=== PATIENT | male | born 1975 | race Caucasian/White ===

== ENCOUNTER 2022-06-23 15:51 | Emergency (ER) | payer BC, SELFPAY ==
[2022-06-23] VITALS (11 sets, daily range): BP systolic 127–150; BP diastolic 86–118; PULSE 80–100; RESP 24; TEMP 36.9; O2SAT 93–100; BMI 38.7
--- NOTE | 2022-06-23 16:19 | ED_ITS ---
HPI - General Adult General Time Seen by Provider: 16:20 Date Seen: 06/23/22 Chief complaint: Abdominal Pain Stated complaint: Severe Abdominal Pain - Temp Time Seen by Provider: 06/23/22 16:19 Source: patient and RN notes reviewed Mode of arrival: ambulatory Limitations: no limitations History of Present Illness HPI narrative: Patient is a 46-year-old male accompanied by his to the ER with concern of abdominal pain. It started this morning. He started with right lower quadrant abdominal pain, generalize is into the suprapubic and left lower quadrant pain. He has not had a fever per se but started to feel like his temperature was elevating. It was in the 99 range just prior to coming in. He did just try some ibuprofen. His last oral intake for food was 2:00 a.m.. He has had diminished appetite but no nausea or vomiting. Maybe some dysuria but no hematuria, no frequency. He has had no prior abdominal surgeries, no history kidney stones. He has not had any diarrhea or change in bowel habits. No respiratory symptoms with this. Patient is a smoker, admits to daily alcohol use 2+ servings a day. Related Data Home Medications Medication Instructions Recorded Confirmed fluticasone 500 mcg-salmeterol 50 ea inhalation 05/31/22 05/31/22 mcg/dose blistr powdr for inhalation (Advair Diskus) Previous Rx's Medication Instructions Recorded amoxicillin 875 mg-potassium 1 tab PO BID #20 tabs 06/23/22 clavulanate 125 mg tablet Allergies Allergy/AdvReac Type Severity Reaction Status Date / Time No Known Drug Allergies Allergy Verified 06/23/22 17:03 Review of Systems Status of ROS: Reports: 10 or more systems reviewed and unremarkable except as noted in History and below [facility] Medical History (Updated 06/23/22 @ 18:00 by Jaylyn Cantrell MD) Cellulitis Social History Smoking Status: Current every day smoker (1/2 ppd) Exam Const: Vital Signs, click to edit/add: Vital Signs - 24 hr 06/23/22 16:01 Temperature 98.5 F Pulse Rate [Right Pulse Oximeter] 100 Respiratory Rate 24 Blood Pressure [Ri ght Upper Arm] 143/93 H Pulse Oximetry 98 Oxygen Delivery Me thod Room Air Documenting provider has reviewed patient's vital signs: yes Common normals: no apparent distress, oriented x3, no limitations, healthy appearing, alert and well nourished General appearance: cooperative, well kempt, well developed and ill appearing (Seems mildly uncomfortable, looks like he does not feel well) acutely Nutritional appearance: overweight HENMT: Common normals: normocephalic, head/scalp atraumatic, hearing grossly normal bilaterally, external ears normal, EAC's normal, external nose normal, nasal mucous membranes and turbinates normal, moist oral mucous membranes, oropharynx normal, dentition normal and gingiva normal Head and scalp: normocephalic and atraumatic Nose: external nose normal and nasal mucous membranes and turbinates normal External ear: external ears normal External auditory canal: EAC's normal Eye: Common normals: PERRL, EOMs intact bilaterally, conjunctivae normal and no scleral icterus Conjunctiva: conjunctiva(e) normal Pupil: PERRL Neck & C-Spine: Common normals: full ROM (Baseline has thick neck), no lymphadenopathy, supple, no meningeal signs, no JVD and thyroid normal Thyroid: thyroid normal Resp: Common normals: normal respiratory effort, no retractions, no use of accessory muscles and clear to auscultation bilaterally Auscultation: clear to auscultation bilaterally Cardio: Common normals: no JVD, regular rate, regular rhythm, S1 normal heart sound, S2 normal heart sound, no gallops, no clicks and no murmurs Rate: regular rate Rhythm: regular rhythm Heart sounds: S1 normal and S2 normal GI: Other: Has protuberant abdomen but patient does not feel it is distended over his baseline body habitus. Bowel sounds are present. He has right lower quadrant tenderness with some rebound, no guarding at this point. It does generalized to the suprapubic area and into the left lower quadrant. Upper abdomen is unaffected. Extremity: Common normals: normal to inspection, full ROM, normal capillary refill, no joint enlargement, no clubbing, cyanosis or edema, no calf tenderness and no pedal edema Neuro: Common normals: oriented x3, moves all extremities, no focal motor deficits and no sensory deficits noted Sensorium/orientation: alert Meningeal signs: no meningeal signs Speech: speech normal Psych: Appearance: well kempt Course Course Hospital Course: Patient will have an IV established, initiate a L of normal saline and 4 mg IV morphine. Will give at appropriate labs and CT imaging of his abdomen with IV contrast. Certainly intra-abdominal pathology including appendicitis are a concern here. I do not think that this is likely to be stone pathology but will hopefully see if this is the case on a CT. Will also collect urinalysis. He obviously has some intra-abdominal pathology in need to decipher whether or not he has a surgical need, any need for any IV antibiotics. Reevaluation(s) Reevaluation #1: Patient is informed that his CT showing uncomplicated sigmoid diverticulitis. Unfortunately he had evidence of significant hypoxia into the low 80s with sleeping and snoring. His has reportedly been trying to get him in for sleep study. Reviewed with him the risks of untreated sleep apnea, the cardiac and pulmonary side effects were specifically reviewed. Knowing that he had hypoxia down into the lower 80s with sleeping, have reviewed with him that I do not think it is in his best interest to go home with narcotics. There is the theoretical but ultimately true possibility of suppression of his respiratory drive due to the sleep apnea with narcotics on board. They seem to be comfortable with Tylenol and ibuprofen, initiation of antibiotics has been done with 3 g IV Unasyn. He does not require hospitalization at this time. Time: 17:57 Vital Signs Vital signs: Initial Vital Signs Temperature 98.5 F 06/23/22 16:01 Temperature Source Temporal Artery Scan 06/23/22 16:01 Pulse Rate 100 06/23/22 16:01 Respiratory Rate 24 06/23/22 16:01 Blood Pressure 143/93 H 06/23/22 16:01 Blood Pressure Mean 109 06/23/22 16:01 Blood Pressure Position Sitting 06/23/22 16:01 Pulse Oximetry 98 06/23/22 16:01 Oxygen Delivery Method 06/23/22 16:01 Vital Signs Temperature 98.5 F 06/23/22 16:01 Pulse Rate 100 06/23/22 16:01 Respiratory Rate 24 06/23/22 16:01 Blood Pressure 143/93 H 06/23/22 16:01 Pulse Oximetry 98 06/23/22 16:01 Oxygen Delivery Method 06/23/22 16:01 Temperature 98.5 F 06/23/22 16:01 Pulse Rate 100 06/23/22 16:01 Respiratory Rate 24 06/23/22 16:01 Blood Pressure 143/93 H 06/23/22 16:01 Pulse Oximetry 98 06/23/22 16:01 Oxygen Delivery Method 06/23/22 16:01 Medical Decision Making Lab Data Lab results reviewed: Yes I reviewed the patient's lab results Labs: Lab Results 06/23/22 06/23/22 06/23/22 Range/Units 16:25 16:25 16:25 WBC 14.76 H (4.50-11.00) K/uL RBC 4.75 (4.30-5.90) m/uL Hgb 14.3 (13.5-17.5) gm/dL Hct 44.3 (37.0-53.0) % MCV 93 (80-100) fL MCH 30 (26-34) pg MCHC 32 (32-36) gm/dL RDW Coeff of Radha 14.7 (11.5-15.5) % Plt Count 298 (140-440) K/uL Neut % (Auto) 86.4 H (42.0-72.0) % Lymph % (Auto) 8.2 L (20-44) % [place] % (Auto) 5.0 (0.0-11.0) % Eos % (Auto) 0.2 (0.0-7.0) % Baso % (Auto) 0.1 (0.0-3.0) % Neut # (Auto) 12.80 H (1.7-7.0) K/uL Lymph # (Auto) 1.20 (0.90-2.90) K/uL [place] # (Auto) 0.70 (0.00-0.90) K/UL Eos # (Auto) 0.00 (0.00-0.50) K/uL Baso # (Auto) 0.00 (0.00-0.30) K/uL Abs Immat Gran (auto) 0.00 (0.00-0.30) K/uL Imm/Tot Granulo (auto) 0.1 % Sodium 137 (135-149) mmol/L Potassium 4.2 (3.6-5.1) mmol/L Chloride 103 (96-114) mmol/L Carbon Dioxide 25 (20-32) mmol/L BUN 13 (5-24) mg/dL Creatinine 0.8 (0.5-1.5) mg/dL Estimated Creat Clear 120.40 Estimated GFR 111 ml/min Glucose 108 (60-115) mg/dL Lactate 1.3 (0.5-1.9) mmol/L Calcium 8.7 (8.4-10.6) mg/dL Total Bilirubin 0.3 (0.1-1.5) mg/dL AST 19 (12-35) U/L ALT 31 (4-50) U/L Alkaline Phosphatase 62 (40-150) U/L C-Reactive Protein 1.8 H (0.5-1.0) mg/dL Total Protein 7.1 (6.0-8.3) g/dL Albumin 4.2 (3.3-5.0) g/dL SARS-CoV-2 (PCR) (Negative) 06/23/22 Range/Units 16:29 WBC (4.50-11.00) K/uL RBC (4.30-5.90) m/uL Hgb (13.5-17.5) gm/dL Hct (37.0-53.0) % MCV (80-100) fL MCH (26-34) pg MCHC (32-36) gm/dL RDW Coeff of Radha (11.5-15.5) % Plt Count (140-440) K/uL Neut % (Auto) (42.0-72.0) % Lymph % (Auto) (20-44) % [place] % (Auto) (0.0-11.0) % Eos % (Auto) (0.0-7.0) % Baso % (Auto) (0.0-3.0) % Neut # (Auto) (1.7-7.0) K/uL Lymph # (Auto) (0.90-2.90) K/uL [place] # (Auto) (0.00-0.90) K/UL Eos # (Auto) (0.00-0.50) K/uL Baso # (Auto) (0.00-0.30) K/uL Abs Immat Gran (auto) (0.00-0.30) K/uL Imm/Tot Granulo (auto) % Sodium (135-149) mmol/L Potassium (3.6-5.1) mmol/L Chloride (96-114) mmol/L Carbon Dioxide (20-32) mmol/L BUN (5-24) mg/dL Creatinine (0.5-1.5) mg/dL Estimated Creat Clear Estimated GFR ml/min Glucose (60-115) mg/dL Lactate (0.5-1.9) mmol/L Calcium (8.4-10.6) mg/dL Total Bilirubin (0.1-1.5) mg/dL AST (12-35) U/L ALT (4-50) U/L Alkaline Phosphatase (40-150) U/L C-Reactive Protein (0.5-1.0) mg/dL Total Protein (6.0-8.3) g/dL Albumin (3.3-5.0) g/dL SARS-CoV-2 (PCR) Negative SARS-CoV-2 (Negative) Imaging Data CT scan - abdomen: Attestation: I have reviewed the pertinent imaging results. Radiologist's impression: Patient: TAWANA SELF Facility:?[facility] Patient ID:?[id number] Site Patient ID:?[id number]. Site :?[id number] Study:?CT Abdomen/Pelvis w/ Contrast-06/23/2022 5:07:21 PM Ordering Physician:?Tamia De La O Final Report: INDICATION: Severe right lower quadrant abdominal pain radiating to the left.. TECHNIQUE: CT abdomen and pelvis acquired with 132 cc Isovue 370 IV contrast. COMPARISON: None. FINDINGS: Lower chest: Mild bibasilar atelectasis. Liver: Too small to characterize hypodensity in segment 4A (). Otherwise, liver is normal in size and attenuation. No suspicious masses. Gallbladder and bile ducts: Unremarkable. No stones or inflammation. No biliary dilatation. Pancreas: Unremarkable. No mass or inflammation. Spleen: Unremarkable. Normal in size. No masses. Adrenal glands: Unremarkable. No nodules. Kidneys: Cortical thinning at the left inferior cortex may be related to prior injury/infarct. No hydronephrosis or hydroureter. No renal stones identified. GI tract: Thickening, mucosal enhancement along the sigmoid colon with surrounding significant fat stranding especially along the superior margin in the mid abdomen, slightly right of midline. No focal fluid collections identified. No evidence of extraluminal free air. No bowel obstruction. Appendix within normal limits. Vasculature: Abdominal aorta is normal in caliber. Mesenteric arteries are patent. Lymph nodes: No lymphadenopathy. Peritoneum/Abdominal Wall: Mesenteric fat stranding surrounding the sigmoid colon. No significant free air or free fluid. Pelvis: Unremarkable. Bones: Unremarkable for age. IMPRESSION: Acute uncomplicated sigmoid diverticulitis. Please note that all CT scans at this facility use dose modulation, iterative reconstruction, and/or weight-based dosing when appropriate to reduce radiation dose to as low as reasonably achievable. Dictated by Angle Gayle MD @ 06/23/2022 5:27:34 PM (Electronic Signature) Critical Care Time Critical Care Time Critical Care Time: No Discharge Plan Discharge Clinical Impression: Sigmoid diverticulitis Condition: Stable Instructions: Diverticulitis (ED), Diverticulitis Diet (ED) Additional Instructions: Start oral antibiotics tomorrow morning, take as prescribed. Follow handouts for dietary recommendations. Tylenol and/or ibuprofen per bottle directions as needed for pain management. Need to schedule a clinic followup within the next 1-2 weeks, be rechecked for your diverticulitis he and have colonoscopy scheduled in about 6-8 weeks time at the earliest, review the need to be scheduled for a sleep study for sleep apnea. Activity Level: Activity as Tolerated Prescriptions: New amoxicillin-pot clavulanate 875-125 mg tablet 1 tab PO BID Qty: 20 0RF No Action fluticasone propion-salmeterol [Advair Diskus] 500-50 mcg/dose blister with device inhalation Label Comments: INHALE ONE PUFF INTO THE LUNGS EVERY 12 HOURS Follow Up/Referrals: Yoni Montemayor MD [Primary Care Provider] - Stand Alone Forms: [employer] Info Instructions
--- NOTE | 2022-06-23 16:29 | CRLHL7_ITS ---
For Patients: As a result of the Century Cures Act, medical imaging exams and procedure reports are released immediately into your electronic medical record. You may view this report before your referring provider. If you have questions, please contact your health care provider. INDICATION: Severe right lower quadrant abdominal pain radiating to the left.. TECHNIQUE: CT abdomen and pelvis acquired with 132 cc Isovue 370 IV contrast. COMPARISON: None. FINDINGS: Lower chest: Mild bibasilar atelectasis. Liver: Too small to characterize hypodensity in segment 4A (2/31). Otherwise, liver is normal in size and attenuation. No suspicious masses. Gallbladder and bile ducts: Unremarkable. No stones or inflammation. No biliary dilatation. Pancreas: Unremarkable. No mass or inflammation. Spleen: Unremarkable. Normal in size. No masses. Adrenal glands: Unremarkable. No nodules. Kidneys: Cortical thinning at the left inferior cortex may be related to prior injury/infarct. No hydronephrosis or hydroureter. No renal stones identified. GI tract: Thickening, mucosal enhancement along the sigmoid colon with surrounding significant fat stranding especially along the superior margin in the mid abdomen, slightly right of midline. No focal fluid collections identified. No evidence of extraluminal free air. No bowel obstruction. Appendix within normal limits. Vasculature: Abdominal aorta is normal in caliber. Mesenteric arteries are patent. Lymph nodes: No lymphadenopathy. Peritoneum/Abdominal Wall: Mesenteric fat stranding surrounding the sigmoid colon. No significant free air or free fluid. Pelvis: Unremarkable. Bones: Unremarkable for age. IMPRESSION: Acute uncomplicated sigmoid diverticulitis. Please note that all CT scans at this facility use dose modulation, iterative reconstruction, and/or weight-based dosing when appropriate to reduce radiation dose to as low as reasonably achievable. Dictated by Angle Gayle MD @ 06/23/2022 5:27:34 PM (Electronically Signed)
[2022-06-23] MEDS: ONDANSETRON 2 MG/ML inj 4 MG IVP (16:39)
[2022-06-23] MEDS: 0.9 % SODIUM CHLORIDE 1000 ml 1,000 ML 500 ML IV (16:39)
[2022-06-23 16:40] LABS: Lactate* 1.3 mmol/L (0.5-1.9)
[2022-06-23] MEDS: MORPHINE 4 MG/ML INJ IVP (16:40)
[2022-06-23] MEDS: HYDROmorphone 0.5 mg/0.5 ml inj IVP (17:10)
[2022-06-23 17:12] LABS: Basophils Percent Auto 0.1 % (0.0-3.0); Eosinophils Percent Auto 0.2 % (0.0-7.0); Hematocrit 44.3 % (37.0-53.0); Hemoglobin* 14.3 gm/dL (13.5-17.5); Immature Granulocytes Pct Auto 0.1 %; Lymphocytes Percent Auto 8.2 % (20-44); Mean Corpuscular HGB Conc 32 gm/dL (32-36); Mean Corpuscular Hemoglobin 30 pg (26-34); Mean Corpuscular Volume 93 fL (80-100); Neutrophils Percent Auto 86.4 % (42.0-72.0); Platelet Count* 298 K/uL (140-440); RDW Coefficient of Variation % 14.7 % (11.5-15.5); Red Blood Count 4.75 m/uL (4.30-5.90); White Blood Count* 14.76 K/uL (4.50-11.00)
[2022-06-23 17:14] LABS: Slide Review Reflex No
[2022-06-23 17:25] LABS: SARS PCR* Negative SARS-CoV-2 (Negative)
[2022-06-23 17:43] LABS: Albumin* 4.2 g/dL (3.3-5.0); Chloride* 103 mmol/L (96-114); Sodium* 137 mmol/L (135-149)
[2022-06-23 17:44] LABS: Potassium* 4.2 mmol/L (3.6-5.1)
[2022-06-23 17:46] LABS: Creatinine* 0.8 mg/dL (0.5-1.5); Estimated Glomerular Filt Rate 111 ml/min
[2022-06-23] MEDS: AMPICILLIN/SULBACTAM 3 GM in 0.9 % SODIUM CHLORIDE Mini-bag 100 ML IVPB (17:46)
[2022-06-23 17:47] LABS: Alanine Aminotransferase* 31 U/L (4-50); Alkaline Phosphatase* 62 U/L (40-150); Aspartate Amino Transferase* 19 U/L (12-35); Bilirubin Total* 0.3 mg/dL (0.1-1.5); Blood Urea Nitrogen* 13 mg/dL (5-24); Calcium* 8.7 mg/dL (8.4-10.6); Carbon Dioxide* 25 mmol/L (20-32); Glucose* 108 mg/dL (60-115); Total Protein* 7.1 g/dL (6.0-8.3)
[2022-06-23 17:50] LABS: C Reactive Protein* 1.8 mg/dL (0.5-1.0)
== END 2022-06-23 19:05 | disposition home or self-care (01) ==
PROVIDERS: Emergency Provider Family Medicine; PCP Family Medicine
DX: K57.32 Diverticulitis of large intestine without perforation or abscess without bleeding (principal)
CPT/HCPCS: 36415; 74177; 80053; 81001; 83605; 85025; 86140; 87635; 94761; 96361; 96365; 96375; 99284; J0295; J1170; J2270; J2405; J7030; Q9967

== ENCOUNTER 2022-07-19 19:23 | Outpatient (CLI) | payer BC, SELFPAY ==
--- OUTSIDE RECORDS SUMMARY | 2022-07-19 19:51 | XMS_ITS | Encounter Summary ---
:1975 Author Organization [place] Address [address] [place] [address] Care Team Providers Name Role Phone Vannessa Flores APRN, CNP Unavailable [phone] Vannessa Flores APRN, CNP Primary Care Provider [phone] Reason for Referral Diagnostic Imaging Ultrasound (Routine) - Closed Specialty Diagnoses / Procedures Referred By Contact Refer red To Contact Diagnoses Lloyd's cyst of knee, right Adelia MeltonNovember Rosario, Procedures US Lower Extremity Non Vascular Right [id number] [place] [address] Referral ID Status Reason Start Date Expiration Date Visits Requ ested Visits Authorized [id number] Closed 05/18/2021 05/18/2022 1 1 Reason for Visit Reason Comments Numbness numbness right thigh x10 day s Encounter Details Date Type Department Care Team Description 05/18/2021 Office Visit [facility] Coming November 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); [facility] Lloyd's cyst of knee, right [address] [address] [phone] Social History Tobacco Use Types Packs/Day Years Used Date Smoking Tobacco: Every Day Smokeless Tobacco: Never Comments: about 1/2 ppd, for about 25 ye ars as of Alcohol Use Standard Drinks/Week Comments Yes 0 (1 standard drink = 0.6 oz pure alcoho l) occ Sex Assigned at Date Recorded Not on file COVID-19 Exposure Response Date Recorded In the last month, have you been in contact with No / Unsure 05/18/2021 10:43 AM CDT someone who was confirmed or suspected to have Coronavirus / COVID-19? documented as of this encounter Last Filed Vital Signs Vital Sign Reading Time Taken Comments Blood Pressure 134/88 05/18/2021 11:12 AM CDT Pulse 85 05/18/2021 11:12 AM CDT Temperature 36.8 ??C (98.2 ??F) 05/18/2021 11:12 AM CDT Respiratory Rate 16 05/18/2021 11:12 AM CDT Oxygen Saturation 95% 05/18/2021 11:12 AM CDT Inhaled Oxygen Concentration - - Weight 120.7 kg (266 lb) 05/18/2021 11:12 AM CDT Height 177.8 cm (5' 10) 05/18/2021 11:12 AM CDT Body Mass Index 38.17 05/18/2021 11:12 AM CDT documented in this encounter Patient Instructions Patient InstructionsComing Cynthia Melton MD - 05/18/2021 11:00 AM CDT [facility] [phone], Toll Free: Lateral Femoral Cutaneous Nerve Entrapment documented in this encounter Progress Notes Coming Cynthia Melton MD - 05/18/2021 11:00 AM CDT Assessment & Plan 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 Discussed not wearing belt to see if things improve, discussedpossible weight loss given his recent reported gain. Continue to monitor over the next few weeks. Follow up as needed. Lloyd's cyst of knee, right Question possible lloyd's cyst. Ordering US today, recommendations pending results. - US Lower Extremity Non Vascular Right; Future 25 minutes spent on the date of the encounter doing chart review, history and exam, documentation and further activities per the note Tobacco Cessation: reports that he has been smoking. He has never used smokeless tobacco. BMI: Estimated body mass index is 38.17 kg/m?? as calculated from the following: Height as of this encounter: 1.778 m (5' 10). Weight as of this encounter: 120.7 kg (266 lb). Weight management plan: Discussed healthy diet and exercise guidelines See Patient Instructions Return in about 3 months (around 08/18/2021) for Preventative Care Visit. Cynthia Melton MD [facility] Marcos Robles is a 45 year old who presents for the following health issues Numbness Associated symptoms include numbness. Numbness right thigh x10 days. Anterior thigh. Sometimes it is burning. Sometimes has pain in the side of the thigh or back of his knee, a soreness more in the back. No accidents or injuries recently, no falls. No tight clothing around the waistband. Does not sit for too long, gets up frequently. No recent traveling, no history of blood clots. Occasionally has pains in the right buttock, sciatica symptoms, that do not radiate down the leg. Sensation is altered, but movement intact. No weakness. Doesreport that he has gained some weight in the last few months, does wear a belt regularly. Review of Systems Neurological: Positive for numbness. Remainder of 7 point ROS negative except per HPI. Objective BP 134/88 (BP Location: Right arm, Patient Position: Chair, Cuff Size: Adult Large) Pulse 85 Temp 98.2 ??F (36.8 ??C) (Oral) Resp 16 Ht 1.778 m (5' 10) Wt 120.7 kg (266 lb) SpO2 95% BMI 38.17 kg/m?? Body mass index is 38.17 kg/m??. Physical Exam GENERAL: healthy, alert and no distress MS: no gross musculoskeletal defects noted, no edema SKIN: no suspicious lesions or rashes NEURO: Normal strength and tone, sensory exam intact for light touch and vibration, however reports sensation is different on each thigh. No focal tenderness in right popliteal fossa, no masses palpated. PSYCH: mentation appears normal, affect normal/bright documented in this encounter Plan of Treatment Not on filedocumented as of this encounter Results US Lower Extremity Non Vascular Right (06/01/2021 11:09 AM CDT) Anatomical Region Laterality Modality Right Ultrasound Specimen (Source) Anatomical Location Collection Method / Collectio n Time Received Time / Laterality Volume Impressions 06/01/2021 11:54 AM CDT IMPRESSION: No fluid collection or Lloyd's cyst is appreciated sonographically. BAUDILIO ALCARAZ MD SYSTEM ID: ??[id number] Narrative 06/01/2021 11:54 AM CDT US LOWER EXTREMITY NON VASCULAR RIGHT 06/01/2021 11:09 AM HISTORY: Pain in popliteal fossa, right. Lloyd's cyst of knee, right. FINDINGS: Sonography was performed in th e area of clinical concern (popliteal fossa). Procedure Note Baudilio Alcaraz MD - 06/01/2021Formatting o f this note might be different from the original. US LOWER EXTREMITY NON VASCULAR RIGHT 11:09 AM HISTORY: Pain in popliteal fossa, right. Lloyd's cyst of knee, right. FINDINGS: Sonography was performed in th e area of clinical concern (popliteal fossa). IMPRESSION: No fluid collection or Lloyd 's cyst is appreciated sonographically. 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
--- OUTSIDE RECORDS SUMMARY | 2022-07-19 19:51 | XMS_ITS | Encounter Summary ---
:1975 Author Organization [place] Address [address] [place] [address] Care Team Providers Name Role Phone Vannessa Flores APRN, CNP Unavailable [phone] Vannessa Flores APRN, CNP Primary Care Provider [phone] Encounter Details Date Type Department Care Team Description 05/18/2021 Travel Social History Tobacco Use Types Packs/Day Years [...] / COVID-19? documented as of this encounter Plan of Treatment Not on filedocumented as of this encounter Visit Diagnoses Not on filedocumented in this encounter Additional Health Concerns Assessment Noted Time PHQ-9 Depression Total Score: 0 05/18/2021 11:15 AM CD T documented as of this encounter Care Teams Sales Support Manager Relationship Specialty Start Date End Date Vannessa Flores APRN CNP PCP - General Family Medicine 07/07/20 [address] [place] [address] Vannessa Flores APRN CNP Assigned PCP 08/27/17 07/10/21 [address] [place] [address] documented as of this encounter
--- OUTSIDE RECORDS SUMMARY | 2022-07-19 19:51 | XMS_ITS | Encounter Summary ---
:1975 Author Organization [place] Address [address] [place] [address] Care Team Providers Name Role Phone Vannessa Flores APRN, CNP Unavailable [phone] Vannessa Flores APRN, CNP Primary Care Provider [phone] Encounter Details Date Type Department Care Team Description 06/01/2021 Travel Social History Tobacco Use Types Packs/Day [...] been in contact with No / Unsure 06/01/2021 10:44 AM CDT someone who was confirmed or suspected to have Coronavirus / COVID-19? documented as of this encounter Plan of Treatment Not on filedocumented as of this encounter Visit Diagnoses Not on filedocumented in this encounter Additional Health Concerns Assessment Noted Time PHQ-9 Depression Total Score: 0 05/18/2021 11:15 AM CD T documented as of this encounter Care Teams Software Requirements Engineer Relationship Specialty Start Date End Date Vannessa Flores APRN CNP PCP - General Family Medicine 07/07/20 [address] [place] [address] Vannessa Flores APRN CNP Assigned PCP 08/27/17 07/10/21 [address] [place] [address] documented as of this encounter
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
--- OUTSIDE RECORDS SUMMARY | 2022-07-19 19:51 | XMS_ITS | Encounter Summary ---
:1975 Author Organization [place] Address [address] [place] [address] Care Team Providers Name Role Phone Vannessa Flores APRN, CNP Unavailable [phone] Vannessa Flores APRN, CNP Primary Care Provider [phone] Reason for Referral Diagnostic Imaging Ultrasound (Routine) - Closed Specialty Diagnoses / Procedures Referred By Contact Refer red To Contact Diagnoses Lloyd's cyst of knee, right Coming Geronimo, Cynthia Rosario, Procedures US Lower Extremity Non Vascular Right [address] [place] [id number] 97 Referral ID Status Reason Start Date Expiration Date Visits Requ ested Visits Authorized [id number] Closed 05/18/2021 05/18/2022 1 1 Reason for Visit Diagnostic Imaging Ultrasound (Routine) - Closed Specialty Diagnoses / Procedures Referred By Contact Refer red To Contact Diagnoses Lloyd's cyst of knee, right Coming Geronimo, November Rosario, Procedures US Lower Extremity Non Vascular Right [address] [place] [id number] 20 Referral ID Status Reason Start Date Expiration Date Visits Requ ested Visits Authorized [id number] Closed 05/18/2021 05/18/2022 1 1 Encounter Details Date Type Department Care Team Description 06/01/2021 Hospital Encounter [facility] Marques Cheung cyst of [place] Specialty Cynthia Ponce knee, [facility] Imaging [address] [facility] [address] [facility], [address] [place] [address] Social History Tobacco Use Types Packs/Day Years [...] / COVID-19? documented as of this encounter Medications at Time of Discharge Medication Sig Dispensed Refills Start Date End Date albuterol (PROAIR Inhale 2 puffs into 16 g 11 0 HFA/PROVENTIL the lungs every 4 HFA/VENTOLIN HFA) 108 hours as needed for (90 Base) MCG/ACT shortness of breath / inhalerIndications: Mild dyspnea persistent asthma without complication HYDROcodone-acetaminophe Take 1-2 tablets by 15 tablet 0 n (NORCO) 5-325 MG mouth every 4 hours tablet as needed for pain fluticasone-salmeterol INHALE 1 PUFF INTO 1 Inhaler 11 07/0708/04/2021 (WIXELA INHUB) 500-50 THE LUNGS EVERY 12 MCG/DOSE HOURS inhalerIndications: Mild persistent asthma without complication documented as of this encounter Plan of Treatment Not on filedocumented as of this encounter Procedures Procedure Name Priority Date/Time Associated Diagnosis Comme nts US LOWER EXTREMITY Routine 06/01/2021 11:09 AM Lloyd's cyst of Results for this NON VASCULAR RIGHT CDT knee, right procedure are in the results section. documented in this encounter Results US Lower Extremity Non [...] documented in this encounter Visit Diagnoses Diagnosis Lloyd's cyst of knee, right documented in this encounter Additional Health Concerns Assessment Noted Time PHQ-9 Depression Total Score: 0 05/18/2021 11:15 AM CD T documented as of this encounter Care Teams Data Analyst Report Writer Relationship Specialty Start Date End Date Vannessa Flores APRN SALES MERCHANDISER PCP - General Family Medicine 07/07/20 [address] [place] [address] Vannessa Flores APRN SALES MERCHANDISER Assigned PCP 08/27/17 07/10/21 [address] [place] [address] documented as of this encounter
--- OUTSIDE RECORDS SUMMARY | 2022-07-19 19:51 | XMS_ITS | Encounter Summary ---
:1975 Author Organization [place] Address [address] [place] [address] Care Team Providers Name Role Phone Vannessa Flores APRN, CNP Primary Care Provider [phone] Vannessa Flores APRN BARREL TURNER Unavailable [phone] Reason for Visit Reason Onset Date Comments WOUND CARE 08/26/2021 Encounter Details Date Type Department Care Team Description 08/26/2021 Telephone [facility] Wound Chiqui Marquez MD WOUND CARE Clinic [place] [address] [place] [address] [place] [address] [place] [address] [phone] Social History Tobacco Use Types Packs/Day Years [...] with No / Unsure 08/11/2021 2:34 PM SPORTS NUTRITIONIST someone who was confirmed or suspected to have Coronavirus / COVID-19? documented as of this encounter Miscellaneous Notes Telephone Encounter - patriciagiaBrittanie tavera Martha - 08/26/2021 10:20 AM CST Travis's called upset because the supplies that were sent out are the ones that he is allergic to and it is noted, so she doesn't know why they were sent. Please call her [phone]. TS NUTRITIONIST documented in this encounter Plan of Treatment Not on filedocumented as of this encounter Visit Diagnoses Not on filedocumented in this encounter Additional Health Concerns Assessment Noted Time PHQ-9 Depression Total Score: 0 05/18/2021 11:15 AM CD T documented as of this encounter Care Teams Case Management Director Relationship Specialty Start Date End Date Vannessa Flores APRN BARREL TURNER PCP - General Family Medicine 07/07/20 [address] [place], [place] [phone] Vannessa Flores APRN BARREL TURNER Assigned PCP 08/22/21 01/07/22 [address] [place] [address] documented as of this encounter
--- OUTSIDE RECORDS SUMMARY | 2022-07-19 19:51 | XMS_ITS | Encounter Summary ---
:1975 Author Organization [place] Address [address] [place] [address] Care Team Providers Name Role Phone Vannessa Flores APRN, CNP Primary Care Provider [phone] Vannessa Flores APRN, CNP Unavailable [phone] Encounter Details Date Type Department Care Team Description 09/14/2021 Travel Social History Tobacco Use Types Packs/Day [...] with No / Unsure 09/14/2021 10:56 AM CAUSE ANALYST someone who was confirmed or suspected to have Coronavirus / COVID-19? documented as of this encounter Plan of Treatment Not on filedocumented as of this encounter Visit Diagnoses Not on filedocumented in this encounter Additional Health Concerns Assessment Noted Time PHQ-9 Depression Total Score: 0 05/18/2021 11:15 AM CD T documented as of this encounter Care Teams Senior Data Mining Analyst Relationship Specialty Start Date End Date Vannessa Flores APRN CNP PCP - General Family Medicine 07/07/20 [address] [place], [place] [phone] Vannessa Flores APRN CNP Assigned PCP 08/22/21 01/07/[id number] [place] [address] documented as of this encounter
--- OUTSIDE RECORDS SUMMARY | 2022-07-19 19:51 | XMS_ITS | Encounter Summary ---
:1975 Author Organization [place] Address [address] [place] [address] Care Team Providers Name Role Phone Vannessa Flores APRN, CNP Unavailable [phone] Vannessa Flores APRN, CNP Primary Care Provider [phone] Coming GeronimoNovember Rosario [place] Unavailable [phone] Vannessa Flores APRN, CNP Unavailable [phone] Coming November Rosario [place] Unavailable [phone] Encounter Details Date Type Department Care Team Description 05/21/2021 Documentation Only INTERFACED REPORT Unknown, Provider Social History Tobacco Use Types Packs/Day Years [...] documented as of this encounter Care Teams Breakfast Host Relationship Specialty Start Date End Date Vannessa Flores APRN CNP PCP - General Family Medicine 07/07/20 [address] [place] [address] Vannessa Flores APRN CONTENT PRODUCER Assigned PCP 08/27/17 07/10/21 [address] [place] [address] Cynthia Cheung MD Assigned PCP 07/11/21 08/21/21 [address] [place] [address] Vannessa Flores APRN CONTENT PRODUCER Assigned PCP 08/22/21 01/07/22 [address] [place] [address] Cynthia Cheung MD Assigned PCP 01/08/22 [address] [place] [address] documented as of this encounter
--- OUTSIDE RECORDS SUMMARY | 2022-07-19 19:51 | XMS_ITS | Encounter Summary ---
:1975 Author Organization [facility] Address [address] [place] [address]. [place] [address] Care Team Providers Name Role Phone Vannessa Flores APRN, CNP Primary Care Provider [phone] Cynthia Cheung MD Unavailable [phone] Reason for Visit Reason Comments WOUND CARE Encounter Details Date Type Department Care Team Description 07/21/2021 Hospital Encounter [facility] [place] Ulcer of right foot Wound [facility] [place] PA-C with fat layer [address] WOUND HEALING exposed (H) [address] [facility] (Primary Dx) [place] [address] [address] [place] [id number] Social History Tobacco Use Types Packs/Day Years [...] been in contact with No / Unsure 07/21/2021 12:43 PM DRESSMAKER OR TAILOR someone who was confirmed or suspected to have Coronavirus / COVID-19? documented as of this encounter Last Filed Vital Signs Vital Sign Reading Time Taken Comments Blood Pressure 133/99 07/21/2021 12:53 PM DRESSMAKER OR TAILOR Pulse 91 07/21/2021 12:53 PM DRESSMAKER OR TAILOR Temperature 36.7 ??C (98 ??F) 07/21/2021 12:53 PM DRESSMAKER OR TAILOR Respiratory Rate - - Oxygen Saturation - - Inhaled Oxygen Concentration - - Weight 121.6 kg (268 lb) 07/21/2021 12:53 PM DRESSMAKER OR TAILOR Height 177.8 cm (5' 10) 07/21/2021 12:53 PM DRESSMAKER OR TAILOR Body Mass Index 38.45 07/21/2021 12:53 PM DRESSMAKER OR TAILOR documented in this encounter Discharge Instructions Discharge InstructionsWMeghana vogt RN - 07/21/2021 1:09 PM CST Travis Aquino Venu 1975 Add in one multivitamin daily. Add in vitamin c vitamin daily. Wound Dressing Change:Right Dosal Foot After cleansing with mild unscented soap and water (ok to shower), apply small amount of VASHE on nu- gauze, pack into undermining, and lay into wound bed, Cover wound with Edemawear then gauze and coban. Change dressing daily or twice daily Lisa [place] PA-C. July 21, 2021 Call us at [phone] if you have any questions about your wounds, have redness or swelling aroundyour wound, have a fever of 101 or greater or if you have any other problems or concerns. We answer the phone Monday through Monday 8 am to 4 pm, please leave a message as we check the voicemail frequently throughout the day. If you had a positive experience please indicate on your patient satisfaction survey form that [facility] will be sending you. If you have any billing related questions please call the [facility] Business office at [phone]. The clinic staff does not handle billing related matters. SMAKER OR TAILOR documented in this encounter Medications at Time [...] documented as of this encounter Progress Notes Meghana Moses RN - 07/21/2021 1:05 PM CST Patient arrived for wound care visit. Certified Wound Care Nurse time spent evaluating patient record, completed a full evaluation and documented wound(s) & magui-wound skin; provided recommendationbased on treatment plan. Applied dressing, reviewed discharge instructions, patient education, and discussed plan of care with appropriate medical team staff members and patient and/or family members. SMAKER OR TAILOR Lisa [place] PA-C - 07/21/2021 12:51 PM CST Images from the original note were not included. [facility] ASSESSMENT: 1. Full-thickness ulcer of R foot due to crush injury PLAN/DISCUSSION: 1. Wound care plan: Vashe damp packing strip changed daily, EdemaWear 2. Elevate often 3. Ambulate minimally and use hard soled shoe 4. Nutrition: vit D 5kIU/day, high protein diet 5. See bottom of note for detailed wound care and patient instructions HISTORY OF PRESENT ILLNESS: Travis Lea is a 45 year old male with history of tobacco use who dropped a large piece of metal on his right foot on 05/20. He was seen immediately in the ED and noted to have several fractures. Eventually developed what sounded like a hematoma that ruptured. Has also been followed by Dr. Carter who referred him to our clinic. He is weight bearing with a hard soled shoe. Works for [employer] and is off of work trying to heal this. Has been elevating leg often. Ambulating with a hard soled shoe. Per Dr. Carter fractures are healing well. TREATMENT COURSE: 07/21/21: Presents for initial visit at our clinic. VITALS: BP (!) 133/99 (BP Location: Left arm) Pulse 91 Temp 98 ??F (36.7 ??C) (Temporal) Ht 1.778 m (5' 10) Wt 121.6 kg (268 lb) BMI 38.45 kg/m?? PHYSICAL EXAM: GENERAL: Patient is alert and oriented and in no acute distress CV: 2+ pedal pulses INTEGUMENTARY: Wound (used by OP [facility] only) 07/21/21 1257 Right (Active) Thickness/Stage full thickness 07/21/21 1200 Dressing Appearance moist drainage 07/21/21 1200 Base slough 07/21/21 1200 Periwound intact 07/21/21 1200 Periwound Temperature warm 07/21/21 1200 Periwound Skin Turgor soft 07/21/21 1200 Edges open 07/21/21 1200 Length (cm) 3.5 07/21/21 1200 Width (cm) 2.5 07/21/21 1200 Depth (cm) 0.9 07/21/21 1200 Wound (cm^2) 8.75 cm^2 07/21/21 1200 Wound Volume (cm^3) 7.88 cm^3 07/21/21 1200 Undermining [Depth (cm)/Location] 9-12/1.8 cm 07/21/21 1200 Drainage Characteristics/Odor serosanguineous 07/21/21 1200 Drainage Amount moderate 07/21/21 1200 Care, Wound debrided 07/21/21 1200 PROCEDURE: 4% topical lidocaine was applied to the wound by nursing staff. Patient was determined haider capable of making their own medical decisions and informed consent was obtained. Using a curette a surgical debridement was performed down to and including subcutaneous tissue of <20 cm2. Hemostasis was achieved with pressure. The patient tolerated the procedure well. MDM: 45-59 minutes were spent on the date of the visit reviewing previous chart notes, evaluating patient and developing the treatment plan, this excludes any time spent on procedures. PATIENT INSTRUCTIONS Further instructions from your care team Travis Lea 1975 Add in one multivitamin daily. Add in vitamin c vitamin daily. Wound Dressing Change:Right Dosal Foot After cleansing with mild unscented soap and water (ok to shower), apply small amount of VASHE on nu- gauze, pack into undermining, and lay into wound bed, Cover wound with Edemawear then gauze and coban. Change dressing daily or twice daily Lisa Wellington PA-C. July 21, 2021 Electronically signed by Lisa Wellington PA-C on July 21, 2021 SMAKER OR TAILOR documented in this encounter Plan of Treatment Not on filedocumented as of this encounter Visit Diagnoses Diagnosis Ulcer of right foot with fat layer expos ed (H) - Primary documented in this encounter Additional Health Concerns Assessment Noted Time PHQ-9 Depression Total Score: 0 05/18/2021 11:15 AM CD T documented as of this encounter Care Teams Lpn Cma Relationship Specialty Start Date End Date Vannessa Flores APRN GREASE MAN PCP - General Family Medicine 07/07/20 [address] [place], [place] [id number] Cynthia Cheung MD Assigned PCP 07/11/21 08/21/21 [address] [place], [place] [id number] documented as of this encounter
--- OUTSIDE RECORDS SUMMARY | 2022-07-19 19:51 | XMS_ITS | Clinical Summary ---
:1975 Author Organization [facility] Address [address] [place] [address] Care Team Providers Name Role Phone Vannessa Flores APRN, CNP Primary Care Provider [phone] Cynthia Cheung MD Unavailable [phone] Allergies Active Allergy Reactions Severity Noted Date Comments Iodine Unknown 08/26/2021 Reaction to iod oform packing strip Medications Medication Sig Dispensed Refills Start Date End Date Status albuterol (PROAIR Inhale 2 puffs 16 g 11 07/07/2020 Active HFA/PROVENTIL into the lungs HFA/VENTOLIN HFA) 108 every 4 hours as (90 Base) MCG/ACT needed for inhalerIndications: shortness of Mild persistent asthma breath / dyspnea without complication HYDROcodone-acetaminop Take 1-2 tablets 15 tablet 0 05/20/2021 Active hen (NORCO) 5-325 MG by mouth every 4 tablet hours as needed for pain WIXELA INHUB 500-50 INHALE 1 PUFF INTO 14 each 11 08/04/2021 Active MCG/DOSE THE LUNGS EVERY 12 inhalerIndications: HOURS Mild persistent asthma without complication Active Problems Problem Noted Date Ulcer of right foot with fat layer exposed 07/21/2021 Tobacco use 08/22/2017 Mild persistent asthma without complication 12/22/2015 Resolved Problems Problem Noted Date Resolved Date Hematoma 05/18/2021 05/18/2021 Immunizations Name Administration Dates Next Due TDAP Vaccine (Adacel) 01/14/2019 Family History Medical History Relation Comments Family History Negative Other Relation Status Comments Brother Alive Father Maternal Grandfather Maternal Grandmother Mother Alive Other Paternal Grandfather Paternal Grandmother Sister Alive Social History Tobacco Use Types Packs/Day Years Used Date Smoking Tobacco: Every Day Smokeless Tobacco: Never Tobacco Cessation: Ready to Quit: No Comments: about 1/2 ppd, for about 25 ye ars as of Alcohol Use Standard Drinks/Week Comments Yes 0 (1 standard drink = 0.6 oz pure alcoho l) occ Sex Assigned at Date Recorded Not on file Last Filed Vital Signs Vital Sign Reading Time Taken Comments Blood Pressure 157/98 09/14/2021 10:52 AM MANAGER INTERNSHIP Pulse 94 09/14/2021 10:52 AM MANAGER INTERNSHIP Temperature 36.9 ??C (98.4 ??F) 09/14/2021 10:52 AM MANAGER INTERNSHIP Respiratory Rate 18 09/14/2021 10:52 AM MANAGER INTERNSHIP Oxygen Saturation 96% 05/20/2021 11:28 PM CDT Inhaled Oxygen Concentration - - Weight 121.6 kg (268 lb) 07/21/2021 12:53 PM MANAGER INTERNSHIP Height 177.8 cm (5' 10) 07/21/2021 12:53 PM MANAGER INTERNSHIP Body Mass Index 38.45 07/21/2021 12:53 PM MANAGER INTERNSHIP Plan of Treatment Health Maintenance Due Date Last Done Comments ADVANCE CARE PLANNING 1975 ANNUAL REVIEW OF HM ORDERS 1975 CT COLONOGRAPHY 1975 FIT-DNA (Cologuard) 1975 FIT 1975 FLEX SIG 1975 HEPATITIS B IMMUNIZATION (1 1975 of 3 - 3-dose series) YEARLY PREVENTIVE VISIT 1975 Pneumococcal Vaccine: 1982 Pediatrics (0 to 5 Years) and At-Risk Patients (6 to 64 Years) (1 - PCV) COLONOSCOPY 1986 COLORECTAL CANCER SCREENING 1986 HIV SCREENING 1991 HEPATITIS C SCREENING 1994 LIPID 2011 ASTHMA ACTION PLAN 01/15/2020 01/14/2019, 01/14/2019, 08/22/2017 PHQ-2 (once per calendar 08/14/2021 05/18/2021, 05/18/2021, year) 07/07/2020, Additional history exists COVID-19 Vaccine (4 - 10/21/2021 08/26/2021, 02/06/2021, Booster for Moderna series) 01/09/2021 ASTHMA CONTROL TEST 11/16/2021 05/18/2021, 07/07/2020, 12/19/2019, Additional history exists INFLUENZA VACCINE (#1) 2022 DTAP/TDAP/TD IMMUNIZATION 01/14/2029 01/14/2019 (2 - Td or Tdap) IPV IMMUNIZATION Aged Out No longer eligi ble based on patient 's age to complete this topic MENINGITIS IMMUNIZATION Aged Out No longe r eligible based on patient 's age to complete this topic Insurance Payer Benefit Plan / Subscriber ID Effective Phone Address T ype Group Dates WORK COMP WC LIBERTY [id number] 2021-Pres [phone] [address] [place], [place] [id number] [place] [id number] 2017-Prese [phone] [address] [id number] Indemnity nt [address] [place] [address] [id number] Worker's Employer 1975 [phone] PARCEL Compensation 4 (Home) [place] [address] Care Teams Senior Systems Programmer Relationship Specialty Start Date End Date Vannessa Flores APRN DAMASCENER PCP - General Family Medicine 07/07/20 [address] [place], [place] [phone] Cynthia Cheung MD Assigned PCP 01/08/22 [address] [place], [place] [id number]
--- OUTSIDE RECORDS SUMMARY | 2022-07-19 19:51 | XMS_ITS | Encounter Summary ---
:1975 Author Organization [facility] Address [address] [place] [address] Care Team Providers Name Role Phone Vannessa Flores APRN, CNP Primary Care Provider [phone] Coming Cynthia Melton MD Unavailable [phone] Vannessa Flores APRN FLAKE MILLER HELPER Unavailable [phone] Coming Cynthia Melton MD Unavailable [phone] Reason for Visit Reason Comments Medication Refill Encounter Details Date Type Department Care Team Description 08/03/2021 Refill [facility] Vannessa Flores, Medication Refill [facility] [address] [phone] [place] [address] (Wo rk) Social History Tobacco Use Types Packs/Day Years [...] with No / Unsure 07/21/2021 12:43 PM MSWS someone who was confirmed or suspected to have Coronavirus / COVID-19? documented as of this encounter Miscellaneous Notes Telephone Encounter - Mary Lombardo RN - 08/04/2021 12:18 PM CST Images from the original note were not included. Routing refill request to provider for review/approval because: Long-Acting Beta Agonist Inhalers Protocol Failed 08/03/2021 05:14 PM Protocol Details Order for Serevent, Striverdi, or Foradil and pt has steroid inhaler Mary Lombardo RN documented in this encounter Plan of Treatment Not on filedocumented as of this encounter Visit Diagnoses Diagnosis Mild persistent asthma without complicat ion Unspecified asthma documented in this encounter Additional Health Concerns Assessment Noted Time PHQ-9 Depression Total Score: 0 05/18/2021 11:15 AM CD T documented as of this encounter Care Teams Biofuels Product Manager Relationship Specialty Start Date End Date Vannessa Flores APRN FLAKE MILLER HELPER PCP - General Family Medicine 07/07/20 [address] [place] [address] Cynthia Cheung MD Assigned PCP 07/11/21 08/21/21 [address] [place] [address] Vannessa Flores APRN FLAKE MILLER HELPER Assigned PCP 08/22/21 01/07/22 [address] [place] [address] Cynthia Cheung MD Assigned PCP 01/08/22 [address] [place] [address] documented as of this encounter
--- OUTSIDE RECORDS SUMMARY | 2022-07-19 19:51 | XMS_ITS | Encounter Summary ---
:1975 Author Organization [address] [address] Care Team Providers Name Role Phone Vannessa Flores APRN, CNP Primary Care Provider Cynthia Cheung MD Unavailable [phone] Reason for Visit Reason Onset Date Comments Forms 02/28/2022 Work Comp - [employer] Encounter Details Date Type Department Care Team Description 02/28/2022 Telephone [facility], Wound Forms (Work Comp - Wound Clinic [facility]) [address] [facility] [address] [place] [address] [place] [address] [place] , [address] [place] [address] Social History Tobacco Use Types Packs/Day Years Used Date Smoking Tobacco: Every Day Smokeless Tobacco: Never Comments: about 1/2 ppd, for about 25 ye ars as of Alcohol Use Standard Drinks/Week Comments Yes 0 (1 standard drink = 0.6 oz pure alcoho l) occ Sex Assigned at Date Recorded Not on file documented as of this encounter Miscellaneous Notes Telephone Encounter - Yannick Sandhu RN - 02/28/2022 1:18 PM CDT Called [employer] regarding faxes received for no claim number on file. Paperwork we have is from [employer]. [employer] informs we won't receive additional faxes from them informing us that there is no claim number if we do not send any faxes into them as they are unable to locate a claim for this individual. Appears on of our nurses faxed [facility] February 23 requesting a claim number for [employer] to bill supplies. When the nurse called the patient for this information, he was unwilling to provide it and stated, call my secretary receptionist. Called [employer]. They could not provide additional information without the date of injury or claim number, which, as per above, we do not have. Their fax number is [phone]. Faxed over the Health Insurance Claim Form, the 08/26/21 DME order, as well as this note to [employer] and [employer] for them to work out with one another. documented in this encounter Plan of Treatment Not on filedocumented as of this encounter Visit Diagnoses Not on filedocumented in this encounter Additional Health Concerns Assessment Noted Time PHQ-9 Depression Total Score: 0 05/18/2021 11:15 AM CD T documented as of this encounter Care Teams Surgical Instrument Maker Relationship Specialty Start Date End Date Vannessa Flores APRN MANAGER OF MANUFACTURING PCP - General Family Medicine 07/07/20 [address] [place], [place] [phone] Coming Cynthia Mel[place] MD Assigned PCP 01/08/22 [address] [place], [place] [phone] documented as of this encounter
--- OUTSIDE RECORDS SUMMARY | 2022-07-19 19:51 | XMS_ITS | Encounter Summary ---
:1975 Author Organization [facility] Address [facility] [place] [address] Care Team Providers Name Role Phone Vannessa Flores APRN, CNP Primary Care Provider [phone] Cynthia Cheung MD Unavailable [phone] Encounter Details Date Type Department Care Team Description 07/29/2021 Telephone [facility], Clinic [place] [address] [place] [address] [place] [address] [phone] Social History Tobacco Use Types Packs/Day Years [...] with No / Unsure 07/21/2021 12:43 PM REPAIRER CONTROLLER TESTER someone who was confirmed or suspected to have Coronavirus / COVID-19? documented as of this encounter Miscellaneous Notes Telephone Encounter - Meghana Moses, RN - 07/29/2021 2:56 PM CST Left message for to return call Spoke to patient ok to use ones with iodine if needed. Re-order placed for more supplies. Instructedpatient to follow up with home medical store. IRER CONTROLLER TESTER Telephone Encounter - Morales Vieyra - 07/29/2021 10:16 AM REPAIRER CONTROLLER TESTER [facility] Wound Who is the name of the provider?: hSa What is the location you see this provider at?: [facility] Reason for call: Needs supplies ordered. Will run out of cleaning solution and packing strips beforeappt on 08/09. Last supply order included 2 jars of packing strips, the second jar they opened had iodine but the first did not. Needs clarification if the strips are supposed to have iodine, or are they to use both with and without iodine fro each dressing change. Can we leave a detailed message on this number? NO - Can leave message on 's cell [phone] IRER CONTROLLER TESTER documented in this encounter Plan of Treatment Not on filedocumented as of this encounter Visit Diagnoses Diagnosis Ulcer of right foot with fat layer expos ed (H) - Primary documented in this encounter Additional Health Concerns Assessment Noted Time PHQ-9 Depression Total Score: 0 05/18/2021 11:15 AM CD T documented as of this encounter Care Teams Supervisor Of Guidance And Testing Relationship Specialty Start Date End Date Vannessa Flores APRN CLAIM INVESTIGATOR PCP - General Family Medicine 07/07/20 [address] [place] [address] Cynthia Cheung MD Assigned PCP 07/11/21 08/21/21 [address] [place] [address] documented as of this encounter
--- OUTSIDE RECORDS SUMMARY | 2022-07-19 19:51 | XMS_ITS | Encounter Summary ---
:1975 Author Organization [place] Address [address] [place] [address] Care Team Providers Name Role Phone Vannessa Flores APRN, CNP Primary Care Provider [phone] Vannessa Flores APRN LUSTER REPAIRER Unavailable [phone] Reason for Visit Reason Onset Date Comments WOUND CARE 08/27/2021 Encounter Details Date Type Department Care Team Description 08/27/2021 Telephone [facility] Wound Chiqui Marquez MD WOUND CARE Clinic [place] [address] [place] [address] [place] [address] [place] [address] [phone] Social History Tobacco Use Types Packs/Day Years [...] with No / Unsure 08/11/2021 2:34 PM BIOINFORMATICS ASSOCIATE someone who was confirmed or suspected to have Coronavirus / COVID-19? documented as of this encounter Miscellaneous Notes Telephone Encounter - Meghana Moses RN - 08/27/2021 1:32 PM CST documentation does support it- supplies will be sent out NFORMATICS ASSOCIATE Telephone Encounter - Cassie Reyna - 08/27/2021 12:58 PM CST Handi needs records updated and clarified. Ordering Hydrothera Blue, not not called for in orders. Please fax to [phone]. NFORMATICS ASSOCIATE documented in this encounter Plan of Treatment Not on filedocumented as of this encounter Visit Diagnoses Not on filedocumented in this encounter Additional Health Concerns Assessment Noted Time PHQ-9 Depression Total Score: 0 05/18/2021 11:15 AM CD T documented as of this encounter Care Teams Brand Ambassador Relationship Specialty Start Date End Date Vannessa Flores APRN LUSTER REPAIRER PCP - General Family Medicine 07/07/20 [address] [place], [place] [phone] Vannessa Flores APRN LUSTER REPAIRER Assigned PCP 08/22/21 01/07/22 [address] [place], [place] [phone] documented as of this encounter
--- OUTSIDE RECORDS SUMMARY | 2022-07-19 19:51 | XMS_ITS | Encounter Summary ---
:1975 Author Organization [facility] Address [address] [place] [address] Care Team Providers Name Role Phone Vannessa Flores APRN CUSTOMER CONSULTANT Unavailable [phone] Vannessa Flores APRN CUSTOMER CONSULTANT Primary Care Provider [phone] Reason for Visit Reason Comments Foot Injury Encounter Details Date Type Department Care Team Description 05/20/2021 - [facility] Dona Love, Jean osed nondisplaced 05/21/2021 [facility] Emergency DO fracture of second Dept [facility] metatarsal bone of [address] right foot, initial [place], [place] [address] [employer] E encounter [id number] [place] [address] (Wo rk) Social History Tobacco Use Types [...] Sign Reading Time Taken Comments Blood Pressure 195/114 05/20/2021 11:28 PM CDT Pulse 96 05/20/2021 11:28 PM CDT Temperature 36.8 ??C (98.3 ??F) 05/20/2021 11:28 PM CDT Respiratory Rate 20 05/20/2021 11:28 PM CDT Oxygen Saturation 96% 05/20/2021 11:28 PM CDT Inhaled Oxygen Concentration - - Weight - - Height - - Body Mass Index - - documented in this encounter Discharge Instructions Discharge InstructionsDona Love DO - 05/20/2021 11:59 PM CDT DO NOT TAKE TYLENOL WITH NORCO AttachmentsThe following attachments cannot be sent through Care Everywhere. Fracture, Foot (Amharic)documented in this encounter Medications at Time of [...] without complication documented as of this encounter ED Notes Adam Jenkins RN - 05/20/2021 11:27 PM CDT Pt states had box land on right foot tonight while at work. Pt states unable to ambulate on foot. Swelling noted to anterior foot. CMS intact GCS 15 Dona Love DO - 05/20/2021 11:21 PM CDT History Chief Complaint: Foot Injury The history is provided by the patient. Travis Lea is a 45 year old male with history of tobacco use who presents for evaluation of aright foot injury. Travis dropped a large piece of metal on his right foot at work at 11PM. Last tetanus 2018. He has not taken anything for pain. No paresthesias, weakness; greatest pain with ambulation. Review of Systems Musculoskeletal: Right foot pain Skin: Positive for wound. Neurological: Negative for weakness and numbness. All other systems reviewed and are negative. Allergies: No Known Allergies Medications: The patient is currently on no regular medications. Past Medical History: Frostbite of both feet Mild persistent asthma without complication Tobacco use Social History: Presents unaccompanied Current every day smoker, 25 years Alcohol use: Positive, a couple drinks per week Physical Exam Patient Vitals for the past 24 hrs: BP Temp Temp src Pulse Resp SpO2 05/20/21 2328 (!) 195/114 98.3 ??F (36.8 ??C) Oral 96 20 96 % Physical Exam General: Resting comfortably Head: The scalp, face, and head appear normal Eyes: The pupils are normal Conjunctivae and sclera appear normal ENT: The nose is normal Neck: Normal range of motion Skin: No rash or lesions noted. Neuro: Speech is normal and fluent Psych: Awake. Alert. Normal affect. R. Foot Exam: Inspection: soft tissue swelling to dorsal aspect Palpation: TTP over the midfoot with superficial abrasion Strength: Normal painless right hip and knee flex/ext. No pain with right ankle ROM actively and passively; able to flex and extend toes Sensation: Intact to light touch distally all toes Cap refill all toes: < 2 seconds distally. PT/DP Pulses Normal left foot/ankle Emergency Department Course Imaging: XR Foot G/E 3 views, right: Nondisplaced incomplete transverse fracture through the distal aspect of the right second metatarsal. Subtle incomplete transverse fracture of the right third metatarsal midshaft. Normal alignment. Marked dorsal soft tissue swelling. Per radiology. Emergency Department Course: Reviewed: I reviewed nursing notes, vitals and past medical history Assessments: 2354 I obtained history and examined the patient as noted above. Interventions: 0005 Ibuprofen, 600 mg, PO 0005 Hydrocodone-acetaminophen 5-325 mg, 1 tablet, PO Disposition: The patient was discharged to home. Impression & Plan Medical Decision Making: Patient is a 45-year-old male presenting with right foot pain after reportedly dropping metal on hisfoot. He is neurovascularly intact on exam. X-ray does confirm nondisplaced fractures to the second as well as third metatarsals. He has notable swelling on exam. Wound was cleaned and dressed with sterile dressings. His tetanus is up-to-date. He was placed in a walking boot and given crutches with progressive weightbearing. Planning close outpatient follow-up with orthopedics. Analgesia on dispo (norco and NSAIDS recommended) and RICE recommended. Remainder of trauma exam negative. Wound precautions given. Diagnosis: ICD-10-CM 1. Closed nondisplaced fracture of second metatarsal bone of right foot, initial encounter S92.324A Discharge Medications: New Prescriptions HYDROCODONE-ACETAMINOPHEN (NORCO) 5-325 MG TABLET Take 1-2 tablets by mouth every 4 hours as neededfor pain Scribe Disclosure: Aleisha Davidson, brenda serving as a scribe at 11:44 PM on 05/20/2021 to personally document services performed by Dona Love DO based on my observations and the provider's statements to me. Dona Love DO 05/21/21 0103 documented in this encounter Plan of Treatment Not on filedocumented as of this encounter Procedures Procedure Name Priority Date/Time Associated Diagnosis Comme nts XR FOOT RIGHT G/E 3 STAT 05/20/2021 11:42 PM R esults for this VIEWS CDT procedure are i n the results section. documented in this encounter Results Foot XR, G/E 3 views, right (05/20/2021 11:42 PM CDT) Anatomical Region Laterality Modality Foot, Ankle Right Computed Radiography Specimen (Source) Anatomical Collection Method Collection Time Re ceived Time Location / / Volume Laterality 05/20/2021 11:38 PM CDT Impressions 05/20/2021 11:46 PM CDT IMPRESSION: Nondisplaced incomplete elizabeth sverse fracture through the distal aspect of the right second metatarsal. Subtle inco mplete transverse fracture of the right third metatarsal midshaft. Normal alignment. M arked dorsal soft tissue swelling. Narrative 05/20/2021 11:46 PM CDT EXAM: XR FOOT RIGHT G/E 3 VIEWS LOCATION: [facility] DATE/TIME: 05/20/2021 11:38 PM INDICATION: pain and swelling to right f oot after box was dropped on it, evaluate for injury COMPARISON: None. Procedure Note Dandy Lagos MD - 05/20/2021Formatt ing of this note might be different from the original. EXAM: XR FOOT RIGHT G/E 3 VIEWS LOCATION: [facility] DATE/TIME: 05/20/2021 11:38 PM INDICATION: pain and swelling to right f oot after box was dropped on it, evaluate for injury COMPARISON: None. IMPRESSION: Nondisplaced incomplete elizabeth sverse fracture through the distal aspect of the right second metatarsal. Subtle incomplete transverse fracture of the right third metatarsal midshaft. Normal alignment. Marked dorsal soft tissue swelling. Dona Love DO [facility] ORDER BOBO documented in this encounter Visit Diagnoses Diagnosis Closed nondisplaced fracture of second m etatarsal bone of right foot, initial encounter documented in this encounter Administered Medications Inactive Administered Medications - up to 3 most recent administrations Medication Order MAR Action Action Date Dose Rate Site HYDROcodone-acetaminophen Given 05/21/2021 12:05 AM CDT 1 tablet (NORCO) 5-325 MG per tablet 1 tablet 1 tablet, Oral, ONCE, On Mon05/21/21 at 0000, For 1 dose, Maximum acetaminophen dose from all sources= 75 mg/kg/day not to exceed 4 grams ibuprofen (ADVIL/MOTRIN) tablet 600 mg Given 05/21/2021 12:05 AM CDT 600 mg 600 mg, Oral, ONCE, On Mon05/21/21 at 0000, For 1 dose, Give with food. documented in this encounter Active and Recently Administered Medications Times are shown in CDT. Scheduled Medication Order 05/19/2021 05/20/2021 05/21/2021 HYDROcodone-acetaminophen (NORCO) 5-325 MG per tablet 1 tablet ( COMPLETED) 0005 (Given - Provider: Ceci Galindo RN) 1 tablet, Oral, ONCE, On Mon05/21/21 at 0000, For 1 dose, Maximum acetaminophen dose from all sources= 75 mg/kg/day not to exceed 4 grams ibuprofen (ADVIL/MOTRIN) tablet 600 mg (COMPLETED) 0005 (Given - Provider: Ceci Galindo RN) 600 mg, Oral, ONCE, On Mon05/21/21 at 0000, For 1 dose, Give wit h food. documented in this encounter Additional Health Concerns Assessment Noted Time PHQ-9 Depression Total Score: 0 05/18/2021 11:15 AM CD T documented as of this encounter Care Teams Edge Runner Relationship Specialty Start Date End Date Vannessa Flores APRN CUSTOMER CONSULTANT PCP - General Family Medicine 07/07/20 [address] [place], [place] [id number] Vannessa Flores APRN CUSTOMER CONSULTANT Assigned PCP 08/27/17 07/10/21 [address] [place], [place] [id number] documented as of this encounter
--- OUTSIDE RECORDS SUMMARY | 2022-07-19 19:51 | XMS_ITS | Encounter Summary ---
:1975 Author Organization [facility] Address [address] [place] [address] Care Team Providers Name Role Phone Vannessa Flores APRN, CNP Primary Care Provider [phone] Cynthia Cheung MD Unavailable [phone] Encounter Details Date Type Department Care Team Description 08/11/2021 Travel Social History Tobacco Use Types Packs/Day [...] with No / Unsure 08/11/2021 2:34 PM STEWARD/STEWARDESS BANQUET someone who was confirmed or suspected to have Coronavirus / COVID-19? documented as of this encounter Plan of Treatment Not on filedocumented as of this encounter Visit Diagnoses Not on filedocumented in this encounter Additional Health Concerns Assessment Noted Time PHQ-9 Depression Total Score: 0 05/18/2021 11:15 AM CD T documented as of this encounter Care Teams Shredded Filler Cigar Maker Machine Relationship Specialty Start Date End Date Vannessa Flores APRN CNP PCP - General Family Medicine 07/07/20 [address] [place] [address] Cynthia Cheung MD Assigned PCP 07/11/21 08/21/21 [address] [place] [address] documented as of this encounter
--- OUTSIDE RECORDS SUMMARY | 2022-07-19 19:51 | XMS_ITS | Encounter Summary ---
:1975 Author Organization [facility] Address [address] [place] [address] Care Team Providers Name Role Phone Vannessa Flores APRN, CNP Primary Care Provider [phone] Cynthia Cheung MD Unavailable [phone] Encounter Details Date Type Department Care Team Description 07/21/2021 Travel Social History Tobacco Use Types Packs/Day [...] with No / Unsure 07/21/2021 12:43 PM SILVERWARE ASSEMBLER someone who was confirmed or suspected to have Coronavirus / COVID-19? documented as of this encounter Plan of Treatment Not on filedocumented as of this encounter Visit Diagnoses Not on filedocumented in this encounter Additional Health Concerns Assessment Noted Time PHQ-9 Depression Total Score: 0 05/18/2021 11:15 AM CD T documented as of this encounter Care Teams Scuba Instructor Relationship Specialty Start Date End Date Vannessa Flores APRN CNP PCP - General Family Medicine 07/07/20 [address] [place] [address] Cynthia Cheung MD Assigned PCP 07/11/21 08/21/21 [address] [place] [address] documented as of this encounter
--- OUTSIDE RECORDS SUMMARY | 2022-07-19 19:52 | XMS_ITS | Encounter Summary ---
:1975 Author Organization [facility] Address [address] [place] [address] Care Team Providers Name Role Phone Gavin Baker PA-C Primary Care Provider [phone] Vannessa Flores APRN EMISSIONS REPAIR TECHNICIAN Unavailable [phone] Reason for Visit Reason Onset Date Comments Panel Management 12/19/2019 Encounter Details Date Type Department Care Team Description 12/19/2019 [facility] Gavin Baker, Panel Management [place] KARLY [address] [place] [address] N [id number] [phone] Social History Tobacco Use Types Packs/Day Years Used Date Smoking Tobacco: Every Day Smokeless Tobacco: Never Alcohol Use Standard Drinks/Week Comments Yes 0 (1 standard drink = 0.6 oz pure alcoho l) occ Sex Assigned at Date Recorded Not on file documented as of this encounter Miscellaneous Notes Telephone Encounter - Hermila Dickerson MA - 01/21/2020 3:15 PM CDT Tried calling patient, Phone number is disconnected Hermila TITUS Telephone Encounter - Vannessa Flores APRN CNP - 01/21/2020 2:53 PM CDT Please call Travis and ask him to complete a video visit with me, if really not feeling well I can see him in clinic next week. I am not sure who the PCP is but it looks like he for sure needs follow up so I will see him. Thanks, Vannessa Flores CNP Telephone Encounter - Alisson Tuttle CMA - 01/21/2020 11:32 AM CDT SH - do you remember this patient? Not sure who to send this too. Alisson Tuttle CMA Telephone Encounter - Gavin Baker PA-C - 01/21/2020 9:30 AM CDT Unclear why was found to be in my panel or I am listed as pcp. I have never seen this patient. Will route to [place] because it appears has seen Vannessa and Dr. Chavez in the past. -nely lyn Telephone Encounter - Michelle Daily CMA - 01/21/2020 8:24 AM CDT Pt returned ACT---score=10, will route to provider ZB: Pt has low score on ACT, please review and advise Thanks Michelle Daily/USAMA [facility] Telephone Encounter - Samira Vaca MA - 12/19/2019 8:51 AM CDT Patient Quality Outreach Summary Summary: Patient is due/failing the following: ACT needed Type of outreach: Copy of ACT mailed to patient. Questions for provider review: None ARIELA Jennings Chart routed to Care Team. documented in this encounter Plan of Treatment Not on filedocumented as of this encounter Visit Diagnoses Not on filedocumented in this encounter Care Teams Head Cleaning Porter Relationship Specialty Start Date End Date Gavin Baker PA-C PCP - General Physician Rug Cleaner Helper 12/22/15 07/06/20 [address] [place], [place] [phone] Vannessa Flores APRN EMISSIONS REPAIR TECHNICIAN Assigned PCP 08/27/17 07/10/21 [address] [place], [place] [phone] documented as of this encounter
--- OUTSIDE RECORDS SUMMARY | 2022-07-19 19:52 | XMS_ITS | Encounter Summary ---
:1975 Author Organization [facility] Address [address] [place] [address]. [place] [address] Care Team Providers Name Role Phone Gavin Baker PA-C Primary Care Provider [phone] Reason for Visit Reason Comments URI cough, body aches, congestio n x2 days New Patient Encounter Details Date Type Department Care Team Description 12/22/2015 Office Visit [facility] Bruce Chavez MD Mild persistent asthma without complicat ion (Primary Dx); Clinic [address] Acute bronchitis, unspecified organism [address] [place] [id number] Social History Tobacco Use Types Packs/Day Years Used Date Smoking Tobacco: Every Day Smokeless Tobacco: Never Alcohol Use Standard Drinks/Week Comments Yes 0 (1 standard drink = 0.6 oz pure alcoho l) occ Sex Assigned at Date Recorded Not on file documented as of this encounter Last Filed Vital Signs Vital Sign Reading Time Taken Comments Blood Pressure 120/80 12/22/2015 10:57 AM CDT Pulse 78 12/22/2015 10:57 AM CDT Temperature 36.7 ??C (98.1 ??F) 12/22/2015 10:57 AM CDT Respiratory Rate 16 12/22/2015 10:57 AM CDT Oxygen Saturation 94% 12/22/2015 10:57 AM CDT Inhaled Oxygen Concentration - - Weight 100.2 kg (221 lb) 12/22/2015 10:57 AM CDT Height 176.5 cm (5' 9.5) 12/22/2015 10:57 AM CDT Body Mass Index 32.17 12/22/2015 10:57 AM CDT documented in this encounter Progress Notes Bruce Chavez MD - 12/22/2015 10:49 AM CDT SUBJECTIVE: Travis Lea is a 40 year old male who presents to clinic today for the following health issues: Acute Illness Acute illness concerns: URI Onset: 2 days ?? Fever: YES ?? Chills/Sweats: YES ?? Headache (location?): no ?? Sinus Pressure:YES- facial pain ?? Conjunctivitis: no ?? Ear Pain: no ?? Rhinorrhea: YES ?? Congestion: YES ?? Sore Throat: no ?? Cough: XPH-dec-fptqsubqlt ?? Wheeze: YES ?? Decreased Appetite: YES ?? Nausea: no ?? Vomiting: no ?? Diarrhea: no ?? Dysuria/Freq.: no ?? Fatigue/Achiness: YES ?? Sick/Strep Exposure: YES Therapies Tried and outcome: none. Problem list and histories reviewed & adjusted, as indicated. Additional history: as documented Patient Active Problem List Diagnosis ??? Mild persistent asthma without complication No past surgical history on file. History Substance Use Topics ??? Smoking status: Current Every Day Smoker ??? Smokeless tobacco: Never Used ??? Alcohol Use: 0.0 oz/week 0 Standard drinks or equivalent per week Comment: occ Family History Problem Relation Age of Onset ??? Family History Negative Current Outpatient Prescriptions Medication Sig Dispense Refill ??? fluticasone-salmeterol (ADVAIR) 500-50 MCG/DOSE diskus inhaler Inhale 1 puff into the lungs every 12 hours ??? albuterol (PROAIR HFA, PROVENTIL HFA, VENTOLIN HFA) 108 (90 BASE) MCG/ACT inhaler Inhale 2 puffsinto the lungs every 4 hours as needed 1 Inhaler 0 ??? azithromycin (ZITHROMAX) 250 MG tablet Take 2 pills today, then 1 pill for 4 days. 6 tablet 0 No Known Allergies ROS: C: NEGATIVE for fever, chills, change in weight CV: NEGATIVE for chest pain, palpitations or peripheral edema OBJECTIVE: BP 120/80 mmHg Pulse 78 Temp(Src) 98.1 ??F (36.7 ??C) (Oral) Resp 16 Ht 5' 9.5 (1.765 m) Wt 221 lb (100.245 kg) BMI 32.18 kg/m2 SpO2 94% Body mass index is 32.18 kg/(m^2). Head: Normocephalic, atraumatic. Eyes: Conjunctiva clear, non icteric. PERRLA. Ears: External ears nl, TM is nl Nose: Septum midline, nasal mucosa congested. No discharge. There is no tenderness over the maxillary sinuses, there is no tenderness over the frontal sinuses Mouth / Throat: Normal dentition. No oral lesions. Pharynx mild erythematous, tonsils no exudate/hypertrophy. Neck: Supple, no enlarged LN, trachea midline. LUNGS: CTA B/L, no wheezing or crackles. CVS : RRR, no murmur, no rub. ASSESSMENT/PLAN: 1. Mild persistent asthma without complication Controlled, on advair, - albuterol (PROAIR HFA, PROVENTIL HFA, VENTOLIN HFA) 108 (90 BASE) MCG/ACT inhaler; Inhale 2 puffs into the lungs every 4 hours as needed Dispense: 1 Inhaler; Refill: 0 - azithromycin (ZITHROMAX) 250 MG tablet; Take 2 pills today, then 1 pill for 4 days. Dispense: 6 tablet; Refill: 0 2. Acute bronchitis, unspecified organism Start on zpack if symptoms persist or gotten worse. - Influenza A/B antigen Follow up in 5 days if symptoms persist, sooner if symptoms worsen or new ones develops, pt may contact us over the phone for any questions or concerns. Bruce Chavez MD [facility] documented in this encounter Nursing Notes Alisson Tuttle, WOOD PATTERNMAKER - 12/22/2015 11:00 AM CDT Chief Complaint Patient presents with ??? URI cough, body aches, congestion x2 days ??? New Patient Initial BP 120/80 mmHg Pulse 78 Temp(Src) 98.1 ??F (36.7 ??C) (Oral) Resp 16 Ht 5' 9.5 (1.765 m) Wt 221 lb (100.245 kg) BMI 32.18 kg/m2 SpO2 94% Estimated body mass index is 32.18 kg/(m^2) as calculated from the following: Height as of this encounter: 5' 9.5 (1.765 m). Weight as of this encounter: 221 lb (100.245 kg).. BP completed using cuff size large Alisson Tuttle CMA documented in this encounter Plan of Treatment Not on filedocumented as of this encounter Procedures Procedure Name Priority Date/Time Associated Diagnosis Comme nts INFLUENZA A/B Routine 12/22/2015 11:32 AM Acute bronchitis, Re sults for this ANTIGEN CDT unspecified organism procedu re are in the results section. documented in this encounter Results Influenza A/B antigen (12/22/2015 11:32 AM CDT) [facility] Method Time Signature Influenza A/B Nasal [facility] Agn Specimen [facility] [place] Influenza A Negative NEG [facility] Test results must be correlated with clinical data. If ne cessary, results [facility] should be confirmed by a molecular assay or viral culture. [facility] Influenza B Negative NEG [facility] Test results must be correlated with clinical data. If ne cessary, results [facility] should be confirmed by a molecular assay or viral culture. [facility] Specimen Anatomical Collection Method Collection Time Receive d Time (Source) Location / / Volume Laterality Swab from nasal 12/22/2015 11:32 12/22/19 16 sinus (specimen) AM CDT 11:33 AM CD T Bruce Chavez MD LAB - MICRO GENERAL ORDERABL ES Performing Organization Address City/State/ZIP Code Phon e Number [facility] [address] [place] [address] documented in this encounter Visit Diagnoses Diagnosis Mild persistent asthma without complicat ion - Primary Unspecified asthma Acute bronchitis, unspecified organism documented in this encounter Care Teams Electrical Technician Instructor Relationship Specialty Start Date End Date Gavin Baker PA-C PCP - General Physician Pearl Stringer 12/22/15 07/06/20 [address] [place], [place] [id number] documented as of this encounter
--- OUTSIDE RECORDS SUMMARY | 2022-07-19 19:52 | XMS_ITS | Encounter Summary ---
:1975 Author Organization [facility] Address [address] [place] [address] Care Team Providers Name Role Phone Gavin Baker PA-C Primary Care Provider MarkVannessa APRN PROPERTY MAINTENANCE SUPERVISOR Unavailable [phone] MarkVannessa khan APRN PROPERTY MAINTENANCE SUPERVISOR Unavailable [phone] Reason for Visit Reason Onset Date Comments Panel Management 07/04/2018 asthma Encounter Details Date Type Department Care Team Description 07/04/2018 Telephone [facility] Gavin Baker [facility] KARLY Rivera (asthma) [address] [place] [id number] [phone] (Wo rk) Social History Tobacco Use Types Packs/Day Years Used Date Smoking Tobacco: Every Day Smokeless Tobacco: Never Alcohol Use Standard Drinks/Week Comments Yes 0 (1 standard drink = 0.6 oz pure alcoho l) occ Sex Assigned at Date Recorded Not on file documented as of this encounter Miscellaneous Notes Telephone Encounter - Conor Betancourt - 07/06/2018 11:01 AM CST Type of outreach: Sent letter because phone number was a fax T OPERATOR Telephone Encounter - Laurie Agosto CMA - 07/04/2018 3:42 PM SKEET OPERATOR Panel Management Review Patient has the following on his problem list: Asthma review ACT Total Scores 08/22/2017 ACT TOTAL SCORE (Goal Greater than or Equal to 20) 8 In the past 12 months, how many times did you visit the emergency room for your asthma without beingadmitted to the hospital? 0 In the past 12 months, how many times were you hospitalized overnight because of your asthma? 0 1. Is Asthma diagnosis on the Problem List? Yes 2. Is Asthma listed on Health Maintenance? Yes 3. Patient is due for: ACT and AAP Composite cancer screening Chart review shows that this patient is due/due soon for the following None Summary: Patient is due/failing the following: ACT Action needed: Patient needs office visit for asthma. Type of outreach: routed to panel pool for outreach Questions for provider review: None Laurie Agosto Chart routed to Care Team . T OPERATOR documented in this encounter Plan of Treatment Not on filedocumented as of this encounter Visit Diagnoses Not on filedocumented in this encounter Care Teams User Acceptance Tester Relationship Specialty Start Date End Date Gavin Baker, PCP - General Physician Compress Engineer 12/22/15 07/06/20 PA-C [address] [place] [address] Vannessa Flores APRN PCP - Assigned PCP 08/27/17 10/16/18 PROPERTY MAINTENANCE SUPERVISOR [address] [place] [address] Vannessa Flores APRN Assigned PCP 08/27/17 1 09/09/20 PROPERTY MAINTENANCE SUPERVISOR [address] [place] [address] documented as of this encounter
--- OUTSIDE RECORDS SUMMARY | 2022-07-19 19:52 | XMS_ITS | Encounter Summary ---
:1975 Author Organization [facility] Address [address] [place] [address]. [place] [address] Care Team Providers Name Role Phone Gavin Baker PA-C Primary Care Provider [phone] MarkVannessa khan APRN DATA CENTER MANAGER Unavailable [phone] MarkVannessa khan APRN DATA CENTER MANAGER Unavailable [phone] Reason for Visit Reason Onset Date Comments Refill Request 10/10/2018 change requested flu ticasone-salmeterol (ADVAIR) 500-50 MCG/DOSE diskus inha ler Encounter Details Date Type Department Care Team Description 10/10/2018 Refill [facility] Vannessa Flores Ref ill Request (change [place] HEBER Donald DATA CENTER MANAGER requested [id number] fluticasone-salmeterol [place], [place] (ADVAIR ) 500-50 MCG/DOSE [phone] diskus inhaler) [phone] (Wo rk) Social History Tobacco Use Types Packs/Day Years Used Date Smoking Tobacco: Every Day Smokeless Tobacco: Never Alcohol Use Standard Drinks/Week Comments Yes 0 (1 standard drink = 0.6 oz pure alcoho l) occ Sex Assigned at Date Recorded Not on file documented as of this encounter Miscellaneous Notes Telephone Encounter - Heather Reynaga RN - 2018 4:56 PM CST Annual visit due, one month sent Prescription approved per [facility] Refill Protocol. Heather Reynaga, RN, BSN SION DIRECTOR Telephone Encounter - Marietta Masters - 10/10/2018 9:44 AM CST Message from Monica: Patient needs a refill on Advair the fax is coming as Wixels inhub diskus 500/50 60's this is a new generic for advair Please advise if appropriate. Requested Prescriptions Pending Prescriptions Disp Refills ??? fluticasone-salmeterol (ADVAIR) 500-50 MCG/DOSE inhaler Last Written Prescription Date: 08/22/17 Last Fill Quantity: 3 inhaler, # refills: 3 Last office visit: 08/22/2017 with prescribing provider: Mark Future Office Visit: 3 Inhaler 3 Sig: Inhale 1 puff into the lungs every 12 hours Inhaled Steroids Protocol Failed - 10/10/2018 9:43 AM Failed - Asthma control assessment score within normal limits in last 6 months Please review ACT score. ACT Total Scores 08/22/2017 ACT TOTAL SCORE (Goal Greater than or Equal to 20) 8 In the past 12 months, how many times did you visit the emergency room for your asthma without beingadmitted to the hospital? 0 In the past 12 months, how many times were you hospitalized overnight because of your asthma? 0 Failed - Recent (6 mo) or future (30 days) visit within the authorizing provider's specialty Patient had office visit in the last 6 months or has a visit in the next 30 days with authorizing provider or within the authorizing provider's specialty. See Patient Info tab in inbasket, or Choose Columns in Meds & Orders section of the refill encounter. Passed - Patient is age 12 or older Passed - Medication is active on med list SION DIRECTOR documented in this encounter Plan of Treatment Not on filedocumented as of this encounter Visit Diagnoses Diagnosis Mild persistent asthma without complicat ion Unspecified asthma documented in this encounter Care Teams Client Consultant Relationship Specialty Start Date End Date Gavin Baker, PCP - General Physician Front Desk Receptionist 12/22/15 07/06/20 KAR[place] [address] [place] [id number] Vannessa Flores APRN PCP - Assigned PCP 08/27/17 10/16/18 DATA CENTER MANAGER [address] [place] [address] Vannessa Flores APRN Assigned PCP 08/27/17 1 09/09/20 DATA CENTER MANAGER [address] [place] [address] documented as of this encounter
--- OUTSIDE RECORDS SUMMARY | 2022-07-19 19:52 | XMS_ITS | Encounter Summary ---
:1975 Author Organization [facility] Address [address] [place] [address]. [place] [address] Care Team Providers Name Role Phone Vannessa Flores APRN SUGAR CHIPPER MACHINE OPERATOR Unavailable [phone] Vannessa Flores APRN, CNP Primary Care Provider [phone] Reason for Visit Reason Comments Asthma Encounter Details Date Type Department Care Team Description 07/07/2020 Office Visit [facility] Vannessa Flores persi stent asthma without complication (Primary Dx); Clinic [place] HEBER Donald Tobacco use; [id number] [facility] SUGAR CHIPPER MACHINE OPERATOR [place] [address] [facility] [address] [place], [place] [phone] [address] Social History Tobacco Use Types Packs/Day Years Used Date Smoking Tobacco: Every Day Smokeless Tobacco: Never Alcohol Use Standard Drinks/Week Comments Yes 0 (1 standard drink = 0.6 oz pure alcoho l) occ Sex Assigned at Date Recorded Not on file COVID-19 Exposure Response Date Recorded In the last month, have you been in contact with No / Unsure 07/07/2020 1:27 PM RECONCILIATION MACHINE OPERATOR someone who was confirmed or suspected to have Coronavirus / COVID-19? documented as of this encounter Last Filed Vital Signs Vital Sign Reading Time Taken Comments Blood Pressure 122/80 07/07/2020 1:47 PM RECONCILIATION MACHINE OPERATOR Pulse 92 07/07/2020 1:47 PM RECONCILIATION MACHINE OPERATOR Temperature 36.7 ??C (98.1 ??F) 07/07/2020 1:47 PM RECONCILIATION MACHINE OPERATOR Respiratory Rate 18 07/07/2020 1:47 PM RECONCILIATION MACHINE OPERATOR Oxygen Saturation 98% 07/07/2020 1:47 PM RECONCILIATION MACHINE OPERATOR Inhaled Oxygen Concentration - - Weight 116.3 kg (256 lb 6.4 oz) 07/07/2020 1:47 PM RECONCILIATION MACHINE OPERATOR Height 177.8 cm (5' 10) 07/07/2020 1:47 PM RECONCILIATION MACHINE OPERATOR Body Mass Index 36.79 07/07/2020 1:47 PM RECONCILIATION MACHINE OPERATOR documented in this encounter Progress Notes Vannessa Flores APRN CNP - 07/07/2020 2:00 PM CST Subjective Travis Lea is a 44 year old male who presents to clinic today for the following health issues: History of Present Illness Asthma: He presents for follow up of asthma. He has no cough, no wheezing, and no shortness of breath. He is using a relief medication a few times a month. He does not miss any doses of his controller medication throughout the week.Patient is aware of the following triggers: cold air, humidity and upper respiratory infections. The patient has not had a visit to the Emergency Room, Urgent Care or Hospital due to asthma since the last clinic visit. He eats 2-3 servings of fruits and vegetables daily.He consumes 2 sweetened beverage(s) daily.He exercises with enough effort to increase his heart rate 20 to 29 minutes per day. He exercises with enough effort to increase his heart rate 3 or less days per week. He is taking medications regularly. Future Appointments Date Time Provider Department Center 07/07/2020 2:00 PM Vannessa Flores APRN CNP [facility] CR Appointment Notes for this encounter: reviewed asthma follow up / renew meds, ACT Health Maintenance Due Topic Date Due ??? PREVENTIVE CARE VISIT 1975 ??? ANNUAL REVIEW OF HM ORDERS 1975 ??? PHQ-9 1975 ??? Pneumococcal Vaccine: Pediatrics (0 to 5 Years) and At-Risk Patients (6 to 64 Years) (1 of 1 - PPSV23) 1982 ??? HIV SCREENING 1991 ??? HEPATITIS C SCREENING 1994 ??? LIPID 2011 ??? ASTHMA ACTION PLAN 01/15/2020 ??? INFLUENZA VACCINE (1) 04/14/2020 ??? ASTHMA CONTROL TEST 06/20/2020 Health Maintenance addressed: Flu Vaccine, PHQ9 and ACT PHQ9 / REGINO / ACT Gave pt questionnaire to complete and Immunizations Pt declined MyChart Status: Not Active Patient declined Asthma Follow-Up Answers for HPI/ROS submitted by the patient on 07/07/2020 Chronic problems general questions HPI Form How many servings of fruits and vegetables do you eat daily?: 2-3 On average, how many sweetened beverages do you drink each day (Examples: soda, juice, sweet tea, etc. Do NOT count diet or artificially sweetened beverages)?: 2 How many minutes a day do you exercise enough to make your heart beat faster?: 20 to 29 How many days a week do you exercise enough to make your heart beat faster?: 3 or less How many days per week do you miss taking your medication?: 0 If you checked off any problems, how difficult have these problems made it for you to do your work, take care of things at home, or get along with other people?: Extremely difficult PHQ9 TOTAL SCORE: 15 Do you have a cough?: No Are you experiencing any wheezing in your chest?: No Do you have any shortness of breath?: No Use of rescue inhaler:: a few times a month Taking Asthma medication as prescribed:: 0 Asthma triggers:: cold air, humidity, upper respiratory infections Have you had any Emergency Room visits, Urgent Care visits, or Hospital Admissions since your last office visit?: No Was ACT completed today? Yes ACT Total Scores 07/07/2020 ACT TOTAL SCORE (Goal Greater than or Equal to 20) 17 In the past 12 months, how many times did you visit the emergency room for your asthma without beingadmitted to the hospital? 0 In the past 12 months, how many times were you hospitalized overnight because of your asthma? 0 ACT of 17, using wixela twice a day as prescribed, very rarely uses albuterol inhaler. SMOKING-has tried nicotine patch, chantix without success, Lack of focus: Has had issues with ADHD since adolescence. Is wondering about a medication to help with concentration. He thinks he had an evaluation for ADHD in the past. Has never been on medication for treatment. PhQ 9 score of 15, denies thoughts of harming self or others. Review of Systems CONSTITUTIONAL: NEGATIVE for fever, chills, change in weight ENT/MOUTH: NEGATIVE for ear, mouth and throat problems RESP: NEGATIVE for significant cough or SOB CV: NEGATIVE for chest pain, palpitations or peripheral edema PSYCHIATRIC: see HPI Objective BP 122/80 (BP Location: Right arm, Patient Position: Chair, Cuff Size: Adult Large) Pulse 92 Temp 98.1 ??F (36.7 ??C) (Oral) Resp 18 Ht 1.778 m (5' 10) Wt 116.3 kg (256 lb 6.4 oz) SpO2 98% BMI 36.79 kg/m?? Body mass index is 36.79 kg/m??. Physical Exam GENERAL: healthy, alert and no distress HENT: ear canals and TM's normal, nose and mouth without ulcers or lesions NECK: no adenopathy, no asymmetry, masses, or scars and thyroid normal to palpation RESP: lungs clear to auscultation - no rales, rhonchi or wheezes CV: regular rate and rhythm, normal S1 S2, no S3 or S4, no murmur, click or rub, no peripheral edemaand peripheral pulses strong PSYCH: mentation appears normal, affect normal/bright Assessment & Plan Mild persistent asthma without complication: ACT of 17, discussed tobacco cessation, is not interested at this time. - albuterol (PROAIR HFA/PROVENTIL HFA/VENTOLIN HFA) 108 (90 Base) MCG/ACT inhaler Dispense: 16 g; Refill: 11 - fluticasone-salmeterol (WIXELA INHUB) 500-50 MCG/DOSE inhaler Dispense: 1 Inhaler; Refill: 11 Declines influenza and pneumococcal vaccines. Tobacco use: discussed tobacco cessation, is not interested at this time. Concentration deficit: discussed that prior to prescribing medication for ADHD would need formal testing with a diagnosis, Travis feels he has had this testing completed in the past, instructed to obtain the report and have it sent to my attention, I will review the report. Tobacco Cessation: reports that he has been smoking. He has never used smokeless tobacco. BMI: Estimated body mass index is 36.79 kg/m?? as calculated from the following: Height as of this encounter: 1.778 m (5' 10). Weight as of this encounter: 116.3 kg (256 lb 6.4 oz). Weight management plan: Discussed healthy diet and exercise guidelines PHQ 07/07/2020 PHQ-9 Total Score 15 Q9: Thoughts of better off /self-harm past 2 weeks Not at all Return in about 1 year (around 07/07/2021) for Physical Exam. Vannessa Flores APRN CNP [facility] NCILIATION MACHINE OPERATOR documented in this encounter Plan of Treatment Not on filedocumented as of this encounter Visit Diagnoses Diagnosis Mild persistent asthma without complicat ion - Primary Unspecified asthma Tobacco use Tobacco use disorder Concentration deficit Attention or concentration deficit documented in this encounter Additional Health Concerns Assessment Noted Time PHQ-9 Depression Total Score: 15 07/08/2020 7:04 AM CS T documented as of this encounter Care Teams College Hire Relationship Specialty Start Date End Date Vannessa Flores APRN CNP PCP - General Family Medicine 07/07/20 [address] [place], [place] [id number] Vannessa Flores APRN CNP Assigned PCP 08/27/17 07/10/21 [address] [place], [place] [id number] documented as of this encounter
--- OUTSIDE RECORDS SUMMARY | 2022-07-19 19:52 | XMS_ITS | Encounter Summary ---
:1975 Author Organization [facility] Address [address] [place] [address]. [place] [address] Care Team Providers Name Role Phone Gavin Baker PA-C Primary Care Provider [phone] Reason for Visit Reason Comments Asthma Encounter Details Date Type Department Care Team Description 08/22/2017 Office Visit [facility] Vannessa Flores us e (Primary Dx); Clinic [place] HEBER Donald Mild persistent asthma witho ut complication [id number] [place] [id number] [place] [address] [place], [place] [phone] [address] Social History Tobacco Use Types Packs/Day Years Used Date Smoking Tobacco: Every Day Smokeless Tobacco: Never Tobacco Cessation: Ready to Quit: No Alcohol Use Standard Drinks/Week Comments Yes 0 (1 standard drink = 0.6 oz pure alcoho l) occ Sex Assigned at Date Recorded Not on file documented as of this encounter Last Filed Vital Signs Vital Sign Reading Time Taken Comments Blood Pressure 138/80 08/22/2017 11:08 AM SYNTHETIC STAPLE EXTRUDER Pulse 86 08/22/2017 11:08 AM SYNTHETIC STAPLE EXTRUDER Temperature 36.4 ??C (97.6 ??F) 08/22/2017 11:08 AM SYNTHETIC STAPLE EXTRUDER Respiratory Rate 12 08/22/2017 11:08 AM SYNTHETIC STAPLE EXTRUDER Oxygen Saturation 98% 08/22/2017 11:08 AM SYNTHETIC STAPLE EXTRUDER Inhaled Oxygen Concentration - - Weight 104.3 kg (230 lb) 08/22/2017 11:08 AM SYNTHETIC STAPLE EXTRUDER Height 176.5 cm (5' 9.5) 08/22/2017 11:08 AM SYNTHETIC STAPLE EXTRUDER Body Mass Index 33.48 08/22/2017 11:08 AM SYNTHETIC STAPLE EXTRUDER documented in this encounter Progress Notes Vannessa Flores APRN CNP - 08/22/2017 11:00 AM CST SUBJECTIVE: Travis Lea is a 41 year old male who presents to clinic today for the following health issues: Asthma Follow-Up Was ACT completed today? Yes ACT of 8 Recent asthma triggers that patient is dealing with: cold air Amount of exercise or physical activity: 2-3 days/week for an average of 15-30 minutes Problems taking medications regularly: No Medication side effects: none Diet: regular (no restrictions) Travis reports that he ran out of Advair three days ago. Since then he has had a wheeze, tight chest, SOB, and cough. When he uses the Advair he does not have these symptoms. He has an albuterol inhaler that he very rarely uses. Asthma attacks are induced by cold or hot, muggy weather, strenuous activity and smoking. He smokes 10-15 cigarettes/day. Denies fever, nasal congestion. ACT score: 8 Problem list and histories reviewed & adjusted, as indicated. Additional history: as documented Reviewed and updated as needed this visit by clinical staff Tobacco Allergies Meds Med Hx Surg Hx Fam Hx Soc Hx Reviewed and updated as needed this visit by Provider ROS: Constitutional, HEENT, cardiovascular, pulmonary and psych systems are negative, except as otherwisenoted. This document serves as a record of the services and decisions personally performed and made by Vannessa Flores CNP. It was created on her behalf by Samir Bustos, a trained bacteriologist medical. The creation of this document is based the provider's statements to the bacteriologist medical. Samir Bustos August 22, 2017 11:16 AM OBJECTIVE: BP 138/80 (BP Location: Left arm, Patient Position: Chair, Cuff Size: Adult Large) Pulse 86 Temp97.6 ??F (36.4 ??C) (Oral) Resp 12 Ht 1.765 m (5' 9.5) Wt 104.3 kg (230 lb) SpO2 98% BMI 33.48 kg/m2 Body mass index is 33.48 kg/(m^2). GENERAL: healthy, alert and no distress HENT: ear canals and TM's normal, nose and mouth without ulcers or lesions NECK: no adenopathy, no asymmetry, masses, or scars and thyroid normal to palpation RESP: lungs clear to auscultation - no rales, rhonchi or wheezes CV: regular rate and rhythm, normal S1 S2, no S3 or S4, no murmur, click or rub, no peripheral edema PSYCH: mentation appears normal, affect normal/bright ASSESSMENT/PLAN: Travis was seen today for asthma. Diagnoses and all orders for this visit: Mild persistent asthma without complication: Poorly controlled with ACT of 8. Lung sounds, clear, oxygen sats 98%. Will refill Advair, prednisone not indicated at this time. - fluticasone-salmeterol (ADVAIR) 500-50 MCG/DOSE diskus inhaler; Inhale 1 puff into the lungs every12 hours - albuterol (PROAIR HFA/PROVENTIL HFA/VENTOLIN HFA) 108 (90 BASE) MCG/ACT Inhaler; Inhale 2 puffs into the lungs every 4 hours as needed ACT given to take home, MA will call in 2 weeks to ensure symptoms have improved. Follow up in 6 months, sooner as needed. The information in this document, created by the bacteriologist medical for me, accurately reflects the services I personally performed and the decisions made by me. I have reviewed and approved this document for accuracy. ASHLEY Kenyon APRN CNP [facility] HETIC STAPLE EXTRUDER documented in this encounter Plan of Treatment Not on filedocumented as of this encounter Procedures Procedure Name Priority Date/Time Associated Diagnosis Comme nts ASTHMA ACTION PLAN Routine 08/22/2017 11:21 AM SYNTHETIC STAPLE EXTRUDER documented in this encounter Visit Diagnoses Diagnosis Tobacco use - Primary Tobacco use disorder Mild persistent asthma without complicat ion Unspecified asthma documented in this encounter Care Teams Material Worker Relationship Specialty Start Date End Date Gavin Baker PA-C PCP - General Physician Picking Table Worker 12/22/15 07/06/20 [address] [place] [address] documented as of this encounter
--- OUTSIDE RECORDS SUMMARY | 2022-07-19 19:52 | XMS_ITS | Encounter Summary ---
:1975 Author Organization [facility] Address [address] [place] [address] Care Team Providers Name Role Phone Gavin Baker PA-C Primary Care Provider Vannessa Flores APRN LIGHTER Unavailable [phone] Reason for Visit Reason Onset Date Comments Refill Request 06/30/2020 albuterol inh Encounter Details Date Type Department Care Team Description 06/30/2020 Refill [facility] Vannessa Flores Ref ill Request [place] HEBER Donald CNP (albuterol inh) [id number] [place] [phone] [id number] (Wo rk) Social History Tobacco Use Types Packs/Day Years Used Date Smoking Tobacco: Every Day Smokeless Tobacco: Never Alcohol Use Standard Drinks/Week Comments Yes 0 (1 standard drink = 0.6 oz pure alcoho l) occ Sex Assigned at Date Recorded Not on file documented as of this encounter Miscellaneous Notes Telephone Encounter - Mare Laguerre RN - 06/30/2020 2:19 PM CST Routing refill request to provider for review/approval because: ACT not at goal. Mare Laguerre RN [facility] -- Triage Nurse RAL FOODS CLERK documented in this encounter Plan of Treatment Not on filedocumented as of this encounter Visit Diagnoses Diagnosis Mild persistent asthma without complicat ion Unspecified asthma documented in this encounter Care Teams Lead Slot Technician Relationship Specialty Start Date End Date Gavin Baker PA-C PCP - General Physician Clerk Travel Reservations 12/22/15 07/06/20 [address] [place], [place] [id number] Vannessa Flores APRN LIGHTER Assigned PCP 08/27/17 07/10/21 [address] [place], [place] [phone] documented as of this encounter
--- OUTSIDE RECORDS SUMMARY | 2022-07-19 19:52 | XMS_ITS | Encounter Summary ---
:1975 Author Organization [facility] Address [address] [place] [address] Care Team Providers Name Role Phone Gavin Baker PA-C Primary Care Provider [phone] MarkVannessa APRN NEWSWRITER Unavailable [phone] Mark, Vannessa Donald APRN NEWSWRITER Unavailable [phone] Reason for Visit Reason Onset Date Comments Panel Management 12/15/2017 asthma Encounter Details Date Type Department Care Team Description 12/15/2017 Telephone [facility] Vannessa Flores [facility] HEBER Donald NEWSWRITER (asthma) [address] [place] [id number] [phone] Social History Tobacco Use Types Packs/Day Years Used Date Smoking Tobacco: Every Day Smokeless Tobacco: Never Alcohol Use Standard Drinks/Week Comments Yes 0 (1 standard drink = 0.6 oz pure alcoho l) occ Sex Assigned at Date Recorded Not on file documented as of this encounter Miscellaneous Notes Telephone Encounter - Laurie Agosto CMA - 12/15/2017 9:26 AM CDT Panel Management Review Patient has the following [...] Yes 3. Patient is due for: ACT Composite cancer screening Chart review shows that this patient is due/due soon for the following None Summary: Patient is due/failing the following: ACT Action needed: Patient needs to do ACT. Type of outreach: tried calling pt but phone number is not in service. letter sent Questions for provider review: None Laurie Agosto CMA Chart routed to Care Team . documented in this encounter Plan of Treatment Not on filedocumented as of this encounter Visit Diagnoses Not on filedocumented in this encounter Care Teams Button Decorating Machine Operator Relationship Specialty Start Date End Date Gavin Baker PCP - General Physician Senior Contracts Manager 12/22/15 07/06/20 PA-C [address] [place] [address] Vannessa Flores APRN PCP - Assigned PCP 08/27/17 10/16/18 NEWSWRITER [address] [place] [address] Vannessa Flores APRN Assigned PCP 08/27/17 1 09/09/20 NEWSWRITER [address] [place] [address] documented as of this encounter
--- OUTSIDE RECORDS SUMMARY | 2022-07-19 19:52 | XMS_ITS | Encounter Summary ---
:1975 Author Organization [facility] Address [address] [place] [address] Care Team Providers Name Role Phone Vannessa Flores APRN COUNTER INTELLIGENCE Unavailable [phone] Vannessa Flores APRN COUNTER INTELLIGENCE Primary Care Provider [phone] Reason for Visit Reason Comments Patient/info Update SB # Encounter Details Date Type Department Care Team Description 10/16/2020 Documentation Only [facility] Mihaela Dubois ent/info Update [facility] [place] KYLIE Medley (SB # ) [id number] [facility] [phone] [place], [place] (Work) [address] Social History Tobacco Use Types Packs/Day Years Used Date Smoking Tobacco: Every Day Smokeless Tobacco: Never Alcohol Use Standard Drinks/Week Comments Yes 0 (1 standard drink = 0.6 oz pure alcoho l) occ Sex Assigned at Date Recorded Not on file documented as of this encounter Progress Notes Jasmyne Dubois RN - 10/16/2020 12:01 PM CST RN chart review Per Vannessa Flores APRN COUNTER INTELLIGENCE list patient is listed as SB #4 and should be SB #2 RN changed to SB #2 per pcp Jasmyne Dubois Registered Nurse, PAL (Patient Advocate Liason) [facility] [phone] MAKER documented in this encounter Plan of Treatment Not on filedocumented as of this encounter Visit Diagnoses Not on filedocumented in this encounter Additional Health Concerns Assessment Noted Time PHQ-9 Depression Total Score: 15 07/08/2020 7:04 AM CS T documented as of this encounter Care Teams Telecom Assistant Relationship Specialty Start Date End Date Vannessa Flores APRN COUNTER INTELLIGENCE PCP - General Family Medicine 07/07/20 [address] [place], [place] [id number] Vannessa Flores APRN COUNTER INTELLIGENCE Assigned PCP 08/27/17 07/10/21 [address] [place] [address] documented as of this encounter
--- OUTSIDE RECORDS SUMMARY | 2022-07-19 19:52 | XMS_ITS | Encounter Summary ---
:1975 Author Organization [facility] Address [address] [place] [address] Care Team Providers Name Role Phone Gavin Baker PA-C Primary Care Provider Vannessa Flores APRN VP TRAINING Unavailable Reason for Visit Reason Onset Date Comments Medication Question 06/29/2020 Encounter Details Date Type Department Care Team Description 06/29/2020 Telephone [facility] Gavin Baker edication Question [place] KARLY Rivera [address] [place] [phone] [id number] (Wo rk) Social History Tobacco Use Types Packs/Day Years Used Date Smoking Tobacco: Every Day Smokeless Tobacco: Never Alcohol Use Standard Drinks/Week Comments Yes 0 (1 standard drink = 0.6 oz pure alcoho l) occ Sex Assigned at Date Recorded Not on file documented as of this encounter Miscellaneous Notes Telephone Encounter - Lisa Francisco RN - 06/29/2020 4:53 PM OXIDE FURNACE TENDER calling. Transferred to nursing. When nurse took call music playing over the phone. No one answered. Ended call and called phone number [phone] back and phone stated disconnected. Closing encounter at this time. Lisa Francisco RN Flex E FURNACE TENDER documented in this encounter Plan of Treatment Not on filedocumented as of this encounter Visit Diagnoses Not on filedocumented in this encounter Care Teams Pack Room Operator Relationship Specialty Start Date End Date Gvain Baker PA-C PCP - General Physician Mosaic Worker 12/22/15 07/06/20 [address] [place], [place] [id number] Vannessa Flores APRN VP TRAINING Assigned PCP 08/27/17 07/10/21 [address] [place], [place] [id number] documented as of this encounter
--- OUTSIDE RECORDS SUMMARY | 2022-07-19 19:52 | XMS_ITS | Encounter Summary ---
:1975 Author Organization [place] [facility] Address [address] [place] [address] Care Team Providers Name Role Phone Gavin Baker PA-C Primary Care Provider Vannessa Flores APRN PEDIATRIC ASSISTANT Unavailable [phone] Encounter Details Date Type Department Care Team Description 01/14/2019 Travel Social History Tobacco Use Types Packs/Day Years Used Date Smoking Tobacco: Every Day Smokeless Tobacco: Never Alcohol Use Standard Drinks/Week Comments Yes 0 (1 standard drink = 0.6 oz pure alcoho l) occ Sex Assigned at Date Recorded Not on file documented as of this encounter Plan of Treatment Not on filedocumented as of this encounter Visit Diagnoses Not on filedocumented in this encounter Care Teams Community Integration Specialist Relationship Specialty Start Date End Date Gavin Baker PA-C PCP - General Physician Launch Manager 12/22/15 07/06/20 [address] [place], [place] [phone] Vannessa Flores APRN PEDIATRIC ASSISTANT Assigned PCP 08/27/17 07/10/21 [address] [place], [place] [id number] documented as of this encounter
--- OUTSIDE RECORDS SUMMARY | 2022-07-19 19:52 | XMS_ITS | Encounter Summary ---
:1975 Author Organization [facility] Address [address] [place] [address] Care Team Providers Name Role Phone Gavin Bakre PA-C Primary Care Provider [phone] MarkVannessa APRN RESTAURANT LEAD Unavailable [phone] Mark, Vannessa Donald APRN RESTAURANT LEAD Unavailable [phone] Reason for Visit Reason Onset Date Comments Panel Management 08/22/2017 asthma Encounter Details Date Type Department Care Team Description 08/22/2017 Telephone [facility] Vannessa Flores [facility] HEBER Donald RESTAURANT LEAD (asthma) [address] [place] [id number] [phone] Social History Tobacco Use Types Packs/Day Years Used Date Smoking Tobacco: Every Day Smokeless Tobacco: Never Alcohol Use Standard Drinks/Week Comments Yes 0 (1 standard drink = 0.6 oz pure alcoho l) occ Sex Assigned at Date Recorded Not on file documented as of this encounter Miscellaneous Notes Telephone Encounter - Laurie Agosto CMA - 09/05/2017 9:39 AM TEST HOLE DRILLER Tried calling pt, phone number is not in service HOLE DRILLER Telephone Encounter - Laurie Agosto CMA - 08/22/2017 11:49 AM TEST HOLE DRILLER Panel Management Review Patient has the following [...] needs to do ACT. Type of outreach: none currently, pt was seen today in clinic with a low ACT score. pt was given a copy of ACT and told we would call him in 2 weeks to go over. will postpone message for 2 weeks Questions for provider review: None Laurie Agosto CMA Chart routed to Care Team . HOLE DRILLER documented in this encounter Plan of Treatment Not on filedocumented as of this encounter Visit Diagnoses Not on filedocumented in this encounter Care Teams Velvet Steamer Relationship Specialty Start Date End Date Gavin Baker PCP - General Physician Coater Carbon Paper 12/22/15 07/06/20 PAAsaelC [address] [place] [address] Vannessa Flores APRN PCP - Assigned PCP 08/27/17 10/16/18 RESTAURANT LEAD [address] [place] [address] Vannessa Flores APRN Assigned PCP 08/27/17 1 09/09/20 RESTAURANT LEAD [address] [place] [address] documented as of this encounter
--- OUTSIDE RECORDS SUMMARY | 2022-07-19 19:52 | XMS_ITS | Encounter Summary ---
:1975 Author Organization [facility] Address [address] [place] [address] Care Team Providers Name Role Phone Vannessa Flores APRN, CNP Unavailable [phone] Vannessa Flores APRN, CNP Primary Care Provider [phone] Encounter Details Date Type Department Care Team Description 05/14/2021 Travel Social History Tobacco Use Types Packs/Day Years Used Date Smoking Tobacco: Every Day Smokeless Tobacco: Never Alcohol Use Standard Drinks/Week Comments Yes 0 (1 standard drink = 0.6 oz pure alcoho l) occ Sex Assigned at Date Recorded Not on file COVID-19 Exposure Response Date Recorded In the last month, have you been in contact with No / Unsure 05/14/2021 1:35 PM CDT someone who was confirmed or suspected to have Coronavirus / COVID-19? documented as of this encounter Plan of Treatment Not on filedocumented as of this encounter Visit Diagnoses Not on filedocumented in this encounter Additional Health Concerns Assessment Noted Time PHQ-9 Depression Total Score: 15 07/08/2020 7:04 AM CS T documented as of this encounter Care Teams Butane Compressor Operator Relationship Specialty Start Date End Date Vannessa Flores APRN CNP PCP - General Family Medicine 07/07/20 [address] [place], [place] [id number] Vannessa Flores APRN CNP Assigned PCP 08/27/17 07/10/21 [address] [place], [place] [phone] documented as of this encounter
--- OUTSIDE RECORDS SUMMARY | 2022-07-19 19:52 | XMS_ITS | Encounter Summary ---
:1975 Author Organization [facility] Address [address] [place] [address] Care Team Providers Name Role Phone Gavin Baker PA-C Primary Care Provider Vannessa Flores APRN MANAGER CARDIOVASCULAR Unavailable Reason for Visit Reason Onset Date Comments Medication Refill 06/29/2020 Marizolxkendra Encounter Details Date Type Department Care Team Description 06/28/2020 Refill [facility]o [facility] [place] MD [place] ([place]) [address] [place] [id number] (Wo rk) Social History Tobacco Use Types Packs/Day Years Used Date Smoking Tobacco: Every Day Smokeless Tobacco: Never Alcohol Use Standard Drinks/Week Comments Yes 0 (1 standard drink = 0.6 oz pure alcoho l) occ Sex Assigned at Date Recorded Not on file documented as of this encounter Miscellaneous Notes Telephone Encounter - Karen Bhat RN - 06/29/2020 4:38 PM CST Spoke with patients (patient on the phone in the background). Patient is completely out and requesting rx to be refilled today. Patient has an appointment scheduled next week with Vannessa Flores for asthma check/med check. Informed patient/ that we will give 1 refill to get him through but that it is VERY important that patient make his appointment in order to continue to get refills of his medication. will ensure that patient makes it to his appointment. Karen Bhat RN E ADMINISTRATIVE ASSISTANT documented in this encounter Plan of Treatment Not on filedocumented as of this encounter Visit Diagnoses Diagnosis Mild persistent asthma without complicat ion Unspecified asthma documented in this encounter Care Teams Business Services Officer Relationship Specialty Start Date End Date Gavin Baker PA-C PCP - General Physician Mechanic Senior 12/22/15 07/06/20 [address] [place], [place] [phone] Vannessa Flores APRN MANAGER CARDIOVASCULAR Assigned PCP 08/27/17 07/10/21 [address] [place], [place] [id number] documented as of this encounter
--- OUTSIDE RECORDS SUMMARY | 2022-07-19 19:52 | XMS_ITS | Encounter Summary ---
:1975 Author Organization [facility] Address [address] [place] [address] Care Team Providers Name Role Phone Vannessa Flores APRN, CNP Unavailable [phone] Vannessa Flores APRN, CNP Primary Care Provider [phone] Reason for Visit Reason Comments Medication Refill Encounter Details Date Type Department Care Team Description 08/22/2020 Refill [facility] Jens Arceo, Medication Refill [place] [address] [place] [address] N [phone] Social History Tobacco Use Types Packs/Day Years Used Date Smoking Tobacco: Every Day Smokeless Tobacco: Never Alcohol Use Standard Drinks/Week Comments Yes 0 (1 standard drink = 0.6 oz pure alcoho l) occ Sex Assigned at Date Recorded Not on file documented as of this encounter Miscellaneous Notes Telephone Encounter - Ellie Garcia RN - 08/24/2020 10:51 AM CST Has current RX. Ellie Garcia RN GER ASSURANCE documented in this encounter Plan of Treatment Not on filedocumented as of this encounter Visit Diagnoses Diagnosis Mild persistent asthma without complicat ion Unspecified asthma documented in this encounter Additional Health Concerns Assessment Noted Time PHQ-9 Depression Total Score: 15 07/08/2020 7:04 AM CS T documented as of this encounter Care Teams Student Assistant Relationship Specialty Start Date End Date Vannessa Flores APRN BALE SEWER PCP - General Family Medicine 07/07/20 [address] [place], [place] [phone] Vannessa Flores APRN BALE SEWER Assigned PCP 08/27/17 07/10/21 [address] [place], [place] [phone] documented as of this encounter
--- OUTSIDE RECORDS SUMMARY | 2022-07-19 19:52 | XMS_ITS | Encounter Summary ---
:1975 Author Organization [facility] Address [address] [place] [address] Care Team Providers Name Role Phone Vannessa Flores APRN, CNP Unavailable [phone] Vannessa Flores APRN, CNP Primary Care Provider [phone] Encounter Details Date Type Department Care Team Description 07/07/2020 Travel Social History Tobacco Use Types Packs/Day Years Used Date Smoking Tobacco: Every Day Smokeless Tobacco: Never Alcohol Use Standard Drinks/Week Comments Yes 0 (1 standard drink = 0.6 oz pure alcoho l) occ Sex Assigned at Date Recorded Not on file COVID-19 Exposure Response Date Recorded In the last month, have you been in contact with No / Unsure 07/07/2020 1:27 PM POUCH MAKING MACHINE OPERATOR someone who was confirmed or suspected to have Coronavirus / COVID-19? documented as of this encounter Plan of Treatment Not on filedocumented as of this encounter Visit Diagnoses Not on filedocumented in this encounter Additional Health Concerns Assessment Noted Time PHQ-9 Depression Total Score: 15 07/08/2020 7:04 AM CS T documented as of this encounter Care Teams Green End Department Supervisor Relationship Specialty Start Date End Date Vannessa Flores APRN CNP PCP - General Family Medicine 07/07/20 [address] [place], [place] [phone] Vannessa Flores APRN CNP Assigned PCP 08/27/17 07/10/21 [address] [place], [place] [phone] documented as of this encounter
--- OUTSIDE RECORDS SUMMARY | 2022-07-19 19:52 | XMS_ITS | Encounter Summary ---
:1975 Author Organization [facility] Address [address] [place] [address]. [place] [address] Care Team Providers Name Role Phone Gavin Baker PA-C Primary Care Provider [phone] Vannessa Flores APRN LAUNDRY FOLDER Unavailable [phone] Reason for Visit Reason Comments Recheck Medication Advair Asthma Smoking Cessation wondering about the patch Encounter Details Date Type Department Care Team Description 01/14/2019 Office Visit [facility] Vannessa Flores persi stent asthma without complication (Primary Dx); [facility] [place] HEBER Donald Tobacco use [address] [place] [address] [facility] [address] [place], [place] [phone] Social History Tobacco Use Types Packs/Day Years Used Date Smoking Tobacco: Every Day Smokeless Tobacco: Never Alcohol Use Standard Drinks/Week Comments Yes 0 (1 standard drink = 0.6 oz pure alcoho l) occ Sex Assigned at Date Recorded Not on file documented as of this encounter Last Filed Vital Signs Vital Sign Reading Time Taken Comments Blood Pressure 133/80 01/14/2019 8:15 AM CDT Pulse 84 01/14/2019 7:51 AM CDT Temperature 36.6 ??C (97.8 ??F) 01/14/2019 7:51 AM CDT Respiratory Rate 16 01/14/2019 7:51 AM CDT Oxygen Saturation 99% 01/14/2019 7:51 AM CDT Inhaled Oxygen Concentration - - Weight 104.3 kg (230 lb) 01/14/2019 7:51 AM CDT Height 177.8 cm (5' 10) 01/14/2019 7:51 AM CDT Body Mass Index 33 01/14/2019 7:51 AM CDT documented in this encounter Progress Notes Vannessa Flores, HEBER LAUNDRY FOLDER - 01/14/2019 7:40 AM CDT Subjective Travis Lea is a 43 year old male who presents to clinic today for the following health issues: History of Present Illness Asthma: He presents for follow up of asthma. He has no cough, some wheezing, and no shortness of breath. He is using a relief medication daily. He does not miss any doses of his controller medication throughout the week.Patient is aware of the following triggers: cold air, humidity and upper respiratory infections. The patient has not had a visit to the Emergency Room, Urgent Care or Hospital due to asthma since the last clinic visit. He eats 2-3 servings of fruits and vegetables daily.He consumes 2 sweetened beverage(s) daily. He is taking medications regularly. ACT of 14 today. Asthma Follow-Up Was ACT completed today? Yes ACT Total Scores 08/22/2017 ACT TOTAL SCORE (Goal Greater than or Equal to 20) 8 In the past 12 months, how many times did you visit the emergency room for your asthma without beingadmitted to the hospital? 0 In the past 12 months, how many times were you hospitalized overnight because of your asthma? 0 ?? How many days per week do you miss taking your asthma controller medication? 0 ?? Please describe any recent triggers for your asthma: humidity, exercise or sports and cold ?? Have you had any Emergency Room Visits, Urgent Care Visits, or Hospital Admissions since your last office visit? No ?? Amount of exercise or physical activity: 4-5 days/week for an average of greater than 60 minutes ?? Problems taking medications regularly: No ?? Medication side effects: none ?? Diet: regular (no restrictions) Medication Followup of Advair ?? Taking Medication as prescribed: yes ?? Side Effects: None ?? Medication Helping Symptoms: yes Smoking: Would like to quit, smoking 15 cigg per day. Would like to try patches and gum. Patient Active Problem List Diagnosis ??? Mild persistent asthma without complication ??? Tobacco use History reviewed. No pertinent surgical history. Social History Tobacco Use ??? Smoking status: Current Every Day Smoker ??? Smokeless tobacco: Never Used Substance Use Topics ??? Alcohol use: Yes Alcohol/week: 0.0 oz Comment: occ Family History Problem Relation Age of Onset ??? Family History Negative Other Current Outpatient Medications Medication Sig Dispense Refill ??? albuterol (PROAIR HFA/PROVENTIL HFA/VENTOLIN HFA) 108 (90 BASE) MCG/ACT Inhaler Inhale 2 puffs into the lungs every 4 hours as needed 1 Inhaler 11 ??? fluticasone-salmeterol (ADVAIR) 500-50 MCG/DOSE inhaler Inhale 1 puff into the lungs every 12 hours 1 Inhaler 0 BP Readings from Last 3 Encounters: 01/14/19 133/80 08/22/17 138/80 12/22/15 120/80 Wt Readings from Last 3 Encounters: 01/14/19 104.3 kg (230 lb) 08/22/17 104.3 kg (230 lb) 12/22/15 100.2 kg (221 lb) Reviewed and updated as needed this visit by Provider Review of Systems ROS COMP: CONSTITUTIONAL: NEGATIVE for fever, chills, change in weight ENT/MOUTH: NEGATIVE for ear, mouth and throat problems RESP: NEGATIVE for significant cough or SOB CV: NEGATIVE for chest pain, palpitations or peripheral edema PSYCHIATRIC: NEGATIVE for changes in mood or affect Objective BP 133/80 Pulse 84 Temp 97.8 ??F (36.6 ??C) (Oral) Resp 16 Ht 1.778 m (5' 10) Wt 104.3 kg(230 lb) SpO2 99% BMI 33.00 kg/m?? There is no height or weight on file to calculate BMI. Physical Exam GENERAL: healthy, alert and no distress NECK: no adenopathy, no asymmetry, masses, or scars and thyroid normal to palpation RESP: lungs clear to auscultation - no rales, rhonchi or wheezes CV: regular rate and rhythm, normal S1 S2, no S3 or S4, no murmur, click or rub, no peripheral edema PSYCH: mentation appears normal, affect normal/bright Assessment & Plan Assessment Plan 1. Mild persistent asthma without complication: ACT of 14, has been out of advair for the last month. - albuterol (PROAIR HFA/PROVENTIL HFA/VENTOLIN HFA) 108 (90 Base) MCG/ACT inhaler; Inhale 2 puffs into the lungs every 4 hours as needed for shortness of breath / dyspnea Dispense: 16 g; Refill: 11 - fluticasone-salmeterol (ADVAIR) 500-50 MCG/DOSE inhaler; Inhale 1 puff into the lungs every 12 hours Dispense: 1 Inhaler; Refill: 11 2. Tobacco use: is interested in cessation, discussed strategies, see below - nicotine (NICODERM CQ) 14 MG/24HR 24 hr patch; Place 1 patch onto the skin every 24 hours Dispense: 28 patch; Refill: 11 - nicotine (NICORETTE) 2 MG gum; Place 1 each (2 mg) inside cheek as needed for smoking cessation Dispense: 240 each; Refill: 11 Tobacco Cessation: reports that he has been smoking. He has never used smokeless tobacco. Tobacco Cessation Action Plan: Pharmacotherapies : Nicotine patch and other Nicotine replacement BMI: Estimated body mass index is 33 kg/m?? as calculated from the following: Height as of this encounter: 1.778 m (5' 10). Weight as of this encounter: 104.3 kg (230 lb). Weight management plan: Discussed healthy diet and exercise guidelines FUTURE APPOINTMENTS: - Follow-up visit in 6 months, sooner as needed. Vannessa Flores APRN CNP [facility] documented in this encounter Plan of Treatment Not on filedocumented as of this encounter Procedures Procedure Name Priority Date/Time Associated Diagnosis Comme nts ASTHMA ACTION PLAN Routine 01/14/2019 8:30 AM CDT documented in this encounter Visit Diagnoses Diagnosis Mild persistent asthma without complicat ion - Primary Unspecified asthma Tobacco use Tobacco use disorder documented in this encounter Care Teams Contact Lens Lathe Operator Relationship Specialty Start Date End Date Gavin Baker PA-C PCP - General Physician Water Filter Cleaner 12/22/15 07/06/20 [address] [place] [address] Vannessa Flores APRN CNP Assigned PCP 08/27/17 07/10/21 [address] [place] [address] documented as of this encounter
--- OUTSIDE RECORDS SUMMARY | 2022-07-19 19:52 | XMS_ITS | Encounter Summary ---
:1975 Author Organization [facility] Address [address] [place] [address] Care Team Providers Name Role Phone Gavin Baker PA-C Primary Care Provider [phone] Vannessa Flores DISPLAY DECORATOR CAR LUBRICATOR Unavailable [phone] Reason for Visit Reason Comments Medication Refill Encounter Details Date Type Department Care Team Description 04/24/2020 Refill [facility] Vannessa Flores, Medication Refill [place] DISPLAY DECORATOR CAR LUBRICATOR [address] [phone] [place] [address] (Wo rk) Social History Tobacco Use Types Packs/Day Years Used Date Smoking Tobacco: Every Day Smokeless Tobacco: Never Alcohol Use Standard Drinks/Week Comments Yes 0 (1 standard drink = 0.6 oz pure alcoho l) occ Sex Assigned at Date Recorded Not on file documented as of this encounter Miscellaneous Notes Telephone Encounter - Ellie Garcia RN - 04/24/2020 2:04 PM CDT Images from the original note were not included. Routing refill request to provider for review/approval because: Long-Acting Beta Agonist Inhalers Protocol Failed Asthma control assessment score within normal limits in last 6 months Protocol Details Order for Serevent, Striverdi, or Foradil and pt has steroid inhaler Recent (6 mo) or future (30 days) visit within the authorizing provider's specialty Ellie Fedderly, RN documented in this encounter Plan of Treatment Not on filedocumented as of this encounter Visit Diagnoses Diagnosis Mild persistent asthma without complicat ion Unspecified asthma documented in this encounter Care Teams Bulb Filler Relationship Specialty Start Date End Date Gavin Baker PA-C PCP - General Physician Production Helper 12/22/15 07/06/20 [address] [place], [place] [id number] Vannessa Flores APRN CAR LUBRICATOR Assigned PCP 08/27/17 07/10/21 [address] [place], [place] [phone] documented as of this encounter
--- NOTE | 2022-07-26 09:01 | W.PM.SLEEP ---
Sleep Study Details Details Interpreting Provider: Kiko Dickerson MD Date of Sleep Study: 07/19/22 Sleep Study Details: STUDY TYPE:? Home ? BMI:? 38.6 ORDERING PROVIDER:? Micky INDICATION:? Concerns about sleep apnea ? SLEEP SUMMARY:? 392.5 monitored minutes RESPIRATORY SUMMARY:? AHI 72.8, supine 82.6, prone 8.0, Low oxygen 51 69.4% of study oxygen less than 90%, 44.3% of study less than 85% 31.3 less than 80% and 9.8% of study oxygen less than 70% PERIODIC LIMB MOVEMENTS OF SLEEP:? Not recorded CARDIAC:? Low 40, high 119, mean 78.8 IMPRESSION:? Severe obstructive sleep apnea with significant hypo oxygenation. Because the patient's low oxygen in-lab titration study is recommended. Once adequate therapy is established an overnight oximetry should be performed again to determine if patient needs nocturnal oxygen. Bradycardia was noted during the study further cardiac evaluation may be indicated RECOMMENDATION: See above
== END 2022-07-19 19:24 | disposition home or self-care (01) ==
LOC: SLEEP 19:24
PROVIDERS: PCP Family Medicine; Visit Provider Family Medicine
DX: G47.33 Obstructive sleep apnea (adult) (pediatric) (principal)
CPT/HCPCS: 95806

== ENCOUNTER 2023-05-05 14:01 | Emergency (ER) | payer BC, SELFPAY ==
[2023-05-05 14:04] VITALS: BP 144/88; PULSE 74; RESP 18; TEMP 36.6; O2SAT 98; BMI 38.7
--- NOTE | 2023-05-05 14:17 | ED_ITS ---
HPI - Chest Pain General Time Seen by Provider: 14:17 Date Seen: 05/05/23 Chief Complaint: Chest Pain Stated Complaint: Chest pain Time Seen by Provider: 05/05/23 14:15 Source: patient and RN notes reviewed Mode of arrival: ambulatory Limitations: no limitations History of Present Illness HPI narrative: Patient is a 47-year-old male coming in with report of chest pain yesterday. He contacted Dr. Dickerson's office today whom he sees in ENT for his sleep apnea with chest pain that happened yesterday. They advised him to be seen in the ER. Patient reports that he had some left-sided chest pain starting at 6 or 7 yesterday morning till about 2 or 3 in the afternoon yesterday. It was not pleuritic, he notes his stomach maybe felt a little gurgly yesterday like he was hungry. He thinks eating may have made it feel better. No nausea or vomiting, no reflux symptoms. He noticed no shortness of breath, no palpitations or irregular heartbeat. Patient does have sleep apnea. He has had no discomfort since that time yesterday when it resolved. He has never had anything like it before. He did take 2 ibuprofen yesterday, maybe helped him feel a bit better. He did touches chest wall yesterday, did not increase the pain and did not seem like it was from his chest wall. Risk Factors Coronary artery disease risk factors: smoking history Related Data Home Medications Medication Instructions Recorded Confirmed fluticasone 500 mcg-salmeterol 50 1 inh inhalation BID 07/04/22 05/05/23 mcg/dose blistr powdr for inhalation (Advair Diskus) Allergies Allergy/AdvReac Type Severity Reaction Status Date / Time No Known Drug Allergies Allergy Verified 05/05/23 14:10 Review of Systems Status of ROS Reports: 6 or more systems reviewed and unremarkable except as noted in History and below [facility] Medical History Cellulitis ?L03.90 - Cellulitis, unspecified (ICD-10) Sigmoid diverticulitis ?K57.32 - Diverticulitis of large intestine without perforation or abscess without bleeding (ICD-10) Cellulitis ?L03.90 - Cellulitis, unspecified (ICD-10) Social History Smoking Status: Current every day smoker What tobacco products do you use: cigarettes Smoking packs per day: 0.75 Smoking cigarettes per day: 15.0 Years smoked: 25 Smoking pack-years: 18.75 Do you use any of these nicotine containing products: None Second hand tobacco smoke exposure: No How often do you have a drink containing alcohol: 2-3 times a week How many standard drinks containing alcohol do you have on a typical day: 1 or 2 AUDIT-C Alcohol total score: 3 Non-prescribed substance use: marijuana (any form) service: No Exam Const Vital Signs, click to edit/add: Vital Signs - 24 hr 05/05/23 14:04 Temperature 97.8 F Pulse Rate [Pulse Oximeter] 74 Respiratory Rate 18 Blood Pressure [Right Upper Arm] 144/88 H Pulse Oximetry 98 Oxygen Delivery Method Room Air Documenting provider has reviewed patient's vital signs: yes Common normals: no apparent distress, oriented x3, no limitations, alert and well nourished General appearance: cooperative, comfortable, well kempt and well developed Nutritional appearance: overweight HENMT Common normals: normocephalic, head/scalp atraumatic and hearing grossly normal bilaterally Head and scalp: normocephalic and atraumatic Face and sinus: normal facial exam Eye Common normals: PERRL, EOMs intact bilaterally, conjunctivae normal and no scleral icterus Conjunctiva: conjunctiva(e) normal Pupil: PERRL Neck & C-Spine Common normals: full ROM, no lymphadenopathy, supple and no JVD General: normal visual inspection and trachea midline Other: Do note shorter thicker neck, makes assessment of jugular venous distension a bit more difficult. Lymph Lymphatic: no lymphadenopathy noted Chest Common normals: inspection of chest normal and palpation of chest normal Resp Common normals: normal respiratory effort, no retractions, no use of accessory muscles and clear to auscultation bilaterally Effort & inspection: able to speak in complete sentences Auscultation: clear to auscultation bilaterally Cardio Common normals: no JVD, regular rate, regular rhythm, S1 normal heart sound, S2 normal heart sound, no gallops, no clicks and no murmurs Rate: regular rate Rhythm: regular rhythm Heart sounds: S1 normal and S2 normal GI Common normals: Normal to inspection, nondistended, normoactive bowel sounds present, soft to palpation, non-tender, no hepatosplenomegaly and no masses Palpation: soft and no hepatosplenomegaly Extremity Other: No lower extremity edema noted. Patient ambulatory into the ED of his own accord. Neuro Common normals: oriented x3 Sensorium/orientation: alert Psych Appearance: well kempt Course Course ED Course: Patient had chest pain from yesterday morning to mid afternoon and none since then. Thus, single solitary troponin and EKG should suffice as he is asymptomatic at this time and has been since about 2 or 3:00 p.m. yesterday. He is currently hemodynamically stable, initial EKG is reassuring. Will get full complement of labs, including D-dimer and guide therapy accordingly. Will obtain a portable chest x-ray to start. His symptoms yesterday could have been cardiopulmonary, GI, musculoskeletal. Again, he currently is asymptomatic and has been since yesterday. If we find nothing on our initial screening any as no further symptoms here, will likely discharge to further outpatient follow-up. Reevaluation(s) Time of Reevaluation #1: 15:34 Reevaluation #1: Have reviewed with patient his normal chest x-ray, normal lab reports. We can say that he has not had a heart attack. I cannot tell him with assured the what his symptoms were yesterday. What I do know is that he does need to follow up in clinic, should have risk factors looked at such as fasting lipids, blood pressure followed in any modifications taking care of as indicated. He needs to get scheduled for follow-up in the clinic, consideration for cardiac stress testing may need to be entertained. In the interim, have stressed to him he does need to return for recurrent symptoms in do recommend being evaluated if he does have active symptoms. Vital Signs Vital signs: Initial Vital Signs Temperature 97.8 F 05/05/23 14:04 Temperature Source Temporal Artery Scan 05/05/23 14:04 Pulse Rate 74 05/05/23 14:04 Respiratory Rate 18 05/05/23 14:04 Blood Pressure 144/88 H 05/05/23 14:04 Blood Pressure Mean 106 H 05/05/23 14:04 Blood Pressure Position Supine 05/05/23 14:04 Pulse Oximetry 98 05/05/23 14:04 Oxygen Delivery Method Room Air 05/05/23 14:04 Vital Signs Temperature 97.8 F 05/05/23 14:04 Pulse Rate 74 05/05/23 14:04 Respiratory Rate 18 05/05/23 14:04 Blood Pressure 144/88 H 05/05/23 14:04 Pulse Oximetry 98 05/05/23 14:04 Oxygen Delivery Method Room Air 05/05/23 14:04 Temperature 97.8 F 05/05/23 14:04 Pulse Rate 74 05/05/23 14:04 Respiratory Rate 18 05/05/23 14:04 Blood Pressure 144/88 H 05/05/23 14:04 Pulse Oximetry 98 05/05/23 14:04 Oxygen Delivery Method Room Air 05/05/23 14:04 MDM - Chest Pain Lab Data Attestation: I reviewed the patient's lab results. Labs: Lab Results 05/05/23 05/05/23 Range/Units 14:16 14:38 WBC 7.00 (4.50-11.00) K/uL RBC 4.91 (4.30-5.90) m/uL Hgb 14.7 (13.5-17.5) gm/dL Hct 44.6 (37.0-53.0) % MCV 91 (80-100) fL MCH 30 (26-34) pg MCHC 33 (32-36) gm/dL RDW Coeff of Radha 13.9 (11.5-15.5) % Plt Count 312 (140-440) K/uL Neut % (Auto) 57.9 (42.0-72.0) % Lymph % (Auto) 28.4 (20-44) % [place] % (Auto) 10.1 (0.0-11.0) % Eos % (Auto) 2.6 (0.0-7.0) % Baso % (Auto) 0.1 (0.0-3.0) % Neut # (Auto) 4.05 (1.7-7.0) K/uL Lymph # (Auto) 1.99 (0.90-2.90) K/uL [place] # (Auto) 0.70 (0.00-0.90) K/UL Eos # (Auto) 0.18 (0.00-0.50) K/uL Baso # (Auto) 0.01 (0.00-0.30) K/uL Abs Immat Gran (auto) 0.06 (0.00-0.30) K/uL Imm/Tot Granulo (auto) 0.9 % D-Dimer Quant (PE/DVT) < 0.27 (0.00-0.50) ug/ml Sodium 141 (135-149) mmol/L Potassium 4.3 (3.6-5.1) mmol/L Chloride 107 (96-114) mmol/L Carbon Dioxide 24 (20-32) mmol/L Anion Gap 10 (7-15) mEq/L BUN 14 (5-24) mg/dL Creatinine 0.9 (0.5-1.5) mg/dL Estimated Creat Clear 105.90 Estimated GFR 107 ml/min Glucose 76 (60-115) mg/dL Lactate 1.3 (0.5-1.9) mmol/L Calcium 9.9 (8.4-10.6) mg/dL Magnesium 1.9 (1.5-2.6) mg/dL Total Bilirubin 0.4 (0.1-1.5) mg/dL AST 32 (12-35) U/L ALT 55 H (4-50) U/L Alkaline Phosphatase 54 (40-150) U/L C-Reactive Protein 0.5 (0.5-1.0) mg/dL NT-Pro-B Natriuret Pep < 20 pg/mL Total Protein 8.0 (6.0-8.3) g/dL Albumin 4.6 (3.3-5.0) g/dL POC Troponin I 0.00 L (0.01-0.04) ng/ml Imaging Data Chest x-ray: Attestation: I have reviewed the pertinent imaging results. My impression: No acute abnormality on preliminary review. Radiologist's impression: Patient: TAWANA SELF Facility:?[facility] Patient ID:?[id number] Site Patient ID:?[id number]. Site :?1975 Study:?XRay Chest PORTABLE-05/05/2023 2:32:06 PM Ordering Physician:?Tamia De La O Final Report: Indication: Chest pain Comparison: None available. Technique: Single AP view chest Findings: There is hyperinflation and chronic interstitial change. There is no focal consolidation, effusion, or pneumothorax. The cardiomediastinal silhouette is within normal limits. The bony thorax is grossly intact. Impression: No acute cardiopulmonary abnormality. Dictated by Pepe Salinas MD @ 05/05/2023 3:21:01 PM (Electronic Signature) ECG Data Attestation: I personally reviewed and interpreted this ECG as follows: (Sinus rhythm, 74 beats per minute. QT corrected 384 milliseconds.) ECG interpretation date: 05/05/23 ECG interpretation time: 14:18 Critical Care Time Critical Care Time Critical Care Time: No Discharge Plan Discharge Clinical Impression: Chest pain Patient Disposition: Home, Self-Care Condition: Stable Instructions: Chest Pain (ED) Additional Instructions: Need to get scheduled in clinic for follow-up as soon as you can, preferably within the next week. Need to consider having a cardiac stress test done in light of your recent chest symptoms. Would also recommend that you have risk factors looked at such as a fasting lipid panel, this can be done through clinic. If you have any recurrent symptoms in the interim, do recommend re- evaluation. Continue to use your CPAP as this is very important for your overall health. Activity Level: Activity as Tolerated Prescriptions: No Action fluticasone propion-salmeterol [Advair Diskus] 500-50 mcg/dose blister with device 1 inh inhalation BID Patient Comments: INHALE ONE PUFF INTO THE LUNGS EVERY 12 HOURS Follow Up/Referrals: Joya Weeks MD [Primary Care Provider] - Stand Alone Forms: [employer] Info Instructions
--- NOTE | 2023-05-05 14:17 | CRLHL7_ITS ---
For Patients: As a result of the Century Cures Act, medical imaging exams and procedure reports are released immediately into your electronic medical record. You may view this report before your referring provider. If you have questions, please contact your health care provider. Indication: Chest pain Comparison: None available. Technique: Single AP view chest Findings: There is hyperinflation and chronic interstitial change. There is no focal consolidation, effusion, or pneumothorax. The cardiomediastinal silhouette is within normal limits. The bony thorax is grossly intact. Impression: No acute cardiopulmonary abnormality. Dictated by Pepe Salinas MD @ 05/05/2023 3:21:01 PM (Electronically Signed)
[2023-05-05 14:48] LABS: Basophils Absolute Auto 0.01 K/uL (0.00-0.30); Basophils Percent Auto 0.1 % (0.0-3.0); Eosinophils Absolute Auto 0.18 K/uL (0.00-0.50); Eosinophils Percent Auto 2.6 % (0.0-7.0); Hematocrit 44.6 % (37.0-53.0); Hemoglobin* 14.7 gm/dL (13.5-17.5); Immature Granulocytes Abs Auto 0.06 K/uL (0.00-0.30); Immature Granulocytes Pct Auto 0.9 %; Lactate* 1.3 mmol/L (0.5-1.9); Lymphocytes Absolute Auto 1.99 K/uL (0.90-2.90); Lymphocytes Percent Auto 28.4 % (20-44); Mean Corpuscular HGB Conc 33 gm/dL (32-36); Mean Corpuscular Hemoglobin 30 pg (26-34); Mean Corpuscular Volume 91 fL (80-100); Monocytes Percent Auto 10.1 % (0.0-11.0); Neutrophils Absolute Auto 4.05 K/uL (1.7-7.0); Neutrophils Percent Auto 57.9 % (42.0-72.0); Platelet Count* 312 K/uL (140-440); RDW Coefficient of Variation % 13.9 % (11.5-15.5); Red Blood Count 4.91 m/uL (4.30-5.90)
[2023-05-05 14:58] LABS: Slide Review Reflex No
[2023-05-05 15:12] LABS: Albumin* 4.6 g/dL (3.3-5.0); Chloride* 107 mmol/L (96-114); Sodium* 141 mmol/L (135-149)
[2023-05-05 15:13] LABS: Potassium* 4.3 mmol/L (3.6-5.1)
[2023-05-05 15:14] LABS: Creatinine* 0.9 mg/dL (0.5-1.5); Estimated Glomerular Filt Rate 107 ml/min
[2023-05-05 15:15] LABS: Alanine Aminotransferase* 55 U/L (4-50); Alkaline Phosphatase* 54 U/L (40-150); Anion Gap 10 mEq/L (7-15); Aspartate Amino Transferase* 32 U/L (12-35); Bilirubin Total* 0.4 mg/dL (0.1-1.5); Blood Urea Nitrogen* 14 mg/dL (5-24); Carbon Dioxide* 24 mmol/L (20-32)
[2023-05-05 15:16] LABS: Calcium* 9.9 mg/dL (8.4-10.6); D Dimer Quantitative* < 0.27 ug/ml (0.00-0.50); Glucose* 76 mg/dL (60-115); Magnesium* 1.9 mg/dL (1.5-2.6)
[2023-05-05 15:18] LABS: C Reactive Protein* 0.5 mg/dL (0.5-1.0)
[2023-05-05 15:27] LABS: NT Pro B Type NatriureticPept* < 20 pg/mL
[2023-05-05 15:51] LABS: Erythrocyte SedimentationRate* 7 mm/hr (2-15)
== END 2023-05-05 15:46 | disposition home or self-care (01) ==
PROVIDERS: Emergency Provider Family Medicine; PCP Family Medicine
DX: R07.9 Chest pain, unspecified (principal)
CPT/HCPCS: 36415; 71045; 80053; 83605; 83735; 83880; 84484; 85025; 85379; 85651; 86140; 93005; 94761; 99284; 99285

== ENCOUNTER 2023-05-16 11:33 | Outpatient (CLI) | payer BC, SELFPAY | END 2023-05-16 11:34 | disposition home or self-care (01) | PROVIDERS: PCP Family Medicine; Visit Provider Family Medicine | DX: Z00.00 Encounter for general adult medical examination without abnormal findings (principal); R07.89 Other chest pain; Z13.6 Encounter for screening for cardiovascular disorders | CPT/HCPCS: 80053; 80061 ==

== ENCOUNTER 2023-09-11 15:16 | Emergency (ER) | payer BC, SELFPAY ==
[2023-09-11 15:28] VITALS: BP 135/76; PULSE 102; RESP 18; TEMP 37.1; O2SAT 95; BMI 37.3
--- NOTE | 2023-09-11 16:09 | ED_ITS ---
HPI - General Adult General Chief complaint: Abdominal Pain Stated complaint: Suspected diverticulitis Time Seen by Provider: 09/11/23 16:08 History of Present Illness HPI narrative: abd pain with diarrhea x 5 days. no fevers 47-year-old man presenting emergency department concern abdominal pain and diarrhea. Symptoms began with some abdominal pain about 5 days ago. Has had about 4 episodes of diarrheal or loose stools today. No melena or hematochezia noted. No fevers. Has had some dry heaves. No noted sick contacts. Improved with ibuprofen. Admittedly when asked is thirsty. He does not have dysuria exactly and is not having urinary frequency but it does hurt at the end of urination. Has never had a urinary tract infection. Review of record shows that in late 2021 had sigmoid diverticulitis. White count a little over 14,000 at that time. He says this feels same. Was recommended after call to triage line to present to the emergency department. Notable history also for sleep apnea. Related Data Home Medications Medication Instructions Recorded Confirmed fluticasone 500 mcg-salmeterol 50 1 inh inhalation BID 07/04/22 06/20/23 mcg/dose blistr powdr for inhalation (Advair Diskus) albuterol sulfate 90 mcg/actuation 1 inh inhalation Q4-6H PRN 05/16/23 06/20/23 breath activated powder inhaler Previous Rx's Medication Instructions Recorded prednisone 10 mg tablets in a dose 10 mg PO DIRECTED #30 ea 07/07/23 pack Allergies Allergy/AdvReac Type Severity Reaction Status Date / Time No Known Drug Allergies Allergy Verified 07/07/23 13:08 Review of Systems Status of ROS: Reports: 6 or more systems reviewed and unremarkable except as noted in History and below [facility] Medical History Back Pain ?M54.9 - Dorsalgia, unspecified (ICD-10) Cellulitis ?L03.90 - Cellulitis, unspecified (ICD-10) Sigmoid diverticulitis ?K57.32 - Diverticulitis of large intestine without perforation or abscess without bleeding (ICD-10) Cellulitis ?L03.90 - Cellulitis, unspecified (ICD-10) Social History Smoking Status: Current every day smoker What tobacco products do you use: cigarettes Smoking packs per day: 0.75 Smoking cigarettes per day: 15.0 Years smoked: 25 Smoking pack-years: 18.75 Do you use any of these nicotine containing products: None Second hand tobacco smoke exposure: No How often do you have a drink containing alcohol: 2-3 times a week How many standard drinks containing alcohol do you have on a typical day: 1 or 2 How often do you have six or more drinks on one occasion: Never AUDIT-C Alcohol total score: 3 Non-prescribed substance use: marijuana (any form) service: No Exam Narrative: Exam Narrative: NAD. Easily conversant. Extensive tattooing on the left arm. Skin otherwise is warm and dry. Is breathing easily. Lungs appear to be clear. Heart in elevated rate item assessment of actually be tachycardic at this time. Abdomen is soft normoactive bowel sounds. Overweight. Moderately tender to palpation in the mid suprapubic area and then to the left low abdomen. Without peritoneal signs. Const: Vital Signs, click to edit/add: Vital Signs - 24 hr 09/11/23 15:28 Temperature 98.7 F Pulse Rate [Right Pulse Oximeter] 102 H Respiratory Rate 18 Blood Pressure [Ri ght Upper Arm] 135/76 Pulse Oximetry 95 Oxygen Delivery Me thod Room Air Course Vital Signs Vital signs: Initial Vital Signs Temperature 98.7 F 09/11/23 15:28 Temperature Source Temporal Artery Scan 09/11/23 15:28 Pulse Rate 102 H 09/11/23 15:28 Respiratory Rate 18 09/11/23 15:28 Blood Pressure 135/76 09/11/23 15:28 Blood Pressure Mean 95 09/11/23 15:28 Blood Pressure Position Sitting 09/11/23 15:28 Pulse Oximetry 95 09/11/23 15:28 Oxygen Delivery Method Room Air 09/11/23 15:28 Vital Signs Temperature 98.7 F 09/11/23 15:28 Pulse Rate 102 H 09/11/23 15:28 Respiratory Rate 18 09/11/23 15:28 Blood Pressure 135/76 09/11/23 15:28 Pulse Oximetry 95 09/11/23 15:28 Oxygen Delivery Method Room Air 09/11/23 15:28 Temperature 98.7 F 09/11/23 15:28 Pulse Rate 102 H 09/11/23 15:28 Respiratory Rate 18 09/11/23 15:28 Blood Pressure 135/76 09/11/23 15:28 Pulse Oximetry 95 09/11/23 15:28 Oxygen Delivery Method Room Air 09/11/23 15:28 Medical Decision Making MDM Narrative Medical decision making narrative: We did discuss differential. Doubtful it has urinary tract infection but certainly possible. Has never had prostatic problems either. Diarrhea is maybe a little unusual. Makes me wonder also about a colitis. Diverticulitis certainly by exam and history is possible. On exam would be in same location is sigmoid diverticulitis and reviewed on CT imaging. Story nor exam seem consistent with appendicitis. I suppose this could be some gastroenteritis. We discussed placing IV hydrating and checking labs and repeating CT imaging. Other than the diarrhea this would seem consistent with his history of diverticulitis and I am willing to treat as such with close follow-up. He is afebrile and not tachycardic on my exam. Whether elevated heart rate is indicative of infection or dehydration may be a little uncertain at this point. Given option, he would prefer to treat as outpatient with oral antibiotics and antiemetics. See patient discharge plan Discharge Plan Discharge Clinical Impression: Abdominal pain, lower Patient Disposition: Home, Self-Care Condition: Stable Additional Instructions: As you and I discussed, this does sound like your prior diverticulitis with the wrinkle being some diarrhea. It is possible this diarrhea represents nonspecific viral enteritis or a colitis. Your pain is very specifically located though on exam. Monitor closely. Stay well-hydrated. Be seen for markedly worse abdominal pain, intractable vomiting, fever, symptoms not improving after 48 hours on antibiotics. Akilah Spears, metronidazole from [facility]. I think you could get in 2 doses of antibiotics by midnight. Prescriptions: No Action fluticasone propion-salmeterol [Advair Diskus] 500-50 mcg/dose blister with device 1 inh inhalation BID Patient Comments: INHALE ONE PUFF INTO THE LUNGS EVERY 12 HOURS albuterol sulfate 90 mcg/actuation aerosol powdr breath activated 1 inh inhalation Q4-6H PRN prednisone 10 mg tablets,dose pack 10 mg PO DIRECTED Qty: 30 0RF Rx Instructions: Take 40 mg daily for three days, then 30 mg daily for three days, then 20 mg daily for 3 days, then 10 mg daily for three days. Follow Up/Referrals: Joya Weeks MD [Primary Care Provider] - Stand Alone Forms: [employer] Info Instructions
== END 2023-09-11 16:45 | disposition home or self-care (01) ==
PROVIDERS: Emergency Provider Family Medicine; PCP Family Medicine
DX: R10.30 Lower abdominal pain, unspecified (principal)
CPT/HCPCS: 99283; 99284

== ENCOUNTER 2023-10-05 11:00 | Outpatient (CLI) | payer BC, SELFPAY | END 2023-10-05 11:01 | disposition home or self-care (01) | LOC: NFLDREF 10-12 15:05 | PROVIDERS: PCP Family Medicine; Referring Provider Family Medicine; Visit Provider Physician Assistant Medical | DX: R63.4 Abnormal weight loss (principal); Z13.9 Encounter for screening, unspecified | CPT/HCPCS: 80076; 86703; 86803 ==

== ENCOUNTER 2023-10-09 08:51 | Outpatient (CLI) | payer BC, SELFPAY ==
--- NOTE | 2023-10-09 09:00 | CT_ITS ---
Patient: TAWANA SELF Facility:?[facility] Patient ID:?[id number] Site Patient ID:?[id number]. Site :?1975 Study:?CT-Chest W/ 75CC ISOVUE 370-10/09/2023 9:34:48 AM Ordering Physician:BOUCHRA Final Report: Indication: ABNORMAL CXR Technique: CT Chest W/ 75CC ISOVUE 370 Please note that all CT scans at this facility use dose modulation, iterative reconstruction, and/or weight-based dosing when appropriate to reduce radiation dose to as low as reasonably achievable. Comparison: Chest x-ray 10/04/2023 Findings: 2.9 cm macrolobular masslike density within the right upper lobe corresponding to the x-ray findings. Multifocal nodular densities present elsewhere throughout the right upper lobe including a larger nodular density more posterior in the right upper lobe measuring 1.1 cm. Small nodular densities also present within the left lower lobe measuring up to 1 cm. Additional nodular densities within the left perihilar left upper lobe measuring up to 1.4 cm. Enlarged right hilar lymph nodes measuring up to 1.7 cm. Visualized thyroid normal. Incidental retroesophageal course of the right subclavian artery. No enlarged axillary lymph nodes. No pleural or pericardial effusion. Adrenal glands normal. Spleen is normal. There is a subcentimeter hypodensity within the liver measuring 8.8 millimeters. No fracture. Impression: 2.9 cm macrolobular masslike density within the right upper lobe. Numerous smaller nodular densities present elsewhere including the right upper lobe, left perihilar left upper lobe and left lower lobe. Right hilar adenopathy. Given the history of weight loss, findings are suspicious for primary lung malignancy. CT PET recommended for further evaluation prior to consideration of biopsy. Please note that all CT scans at this facility use dose modulation, iterative reconstruction, and/or weight-based dosing when appropriate to reduce radiation dose to as low as reasonably achievable. Dictated by Conor Rodriguez MD @ 10/09/2023 10:38:43 AM Signed by:?Conor Rodriguez MD @10/09/2023 10:38:43 AM (Electronic Signature)
== END 2023-10-09 08:52 | disposition home or self-care (01) ==
LOC: CT 08:51
PROVIDERS: PCP Family Medicine; Visit Provider Physician Assistant Medical
DX: R94.8 Abnormal results of function studies of other organs and systems (principal); R91.8 Other nonspecific abnormal finding of lung field; R91.1 Solitary pulmonary nodule; R63.4 Abnormal weight loss; Z72.0 Tobacco use
CPT/HCPCS: 71260; Q9967

== ENCOUNTER 2023-10-13 10:48 | Outpatient (CLI) | payer BC, SELFPAY ==
--- NOTE | 2023-10-13 12:30 | W.ANESCHARGE ---
Anesthesia Charges Start Date/Time Anesthesia Start Date: 10/13/23 Anesthesia Start Time: 11:45 Stop Date/Time Anesthesia Stop Date: 10/13/23 Anesthesia Stop Time: 12:24
--- NOTE | 2023-10-13 12:32 | W.ANESCHARGE ---
Anesthesia Charges Start Date/Time Anesthesia Start Date: 10/13/23 Anesthesia Start Time: 11:45 Stop Date/Time Anesthesia Stop Date: 10/13/23 Anesthesia Stop Time: 12:24
--- NOTE | 2023-10-13 12:34 | W.ANESCHARGE ---
Anesthesia Charges Start Date/Time Anesthesia Start Date: 10/13/23 Anesthesia Start Time: 11:45 Stop Date/Time Anesthesia Stop Date: 10/13/23 Anesthesia Stop Time: 12:24
== END 2023-10-13 10:49 | disposition home or self-care (01) ==
LOC: OP CLINIC 10:48
PROVIDERS: PCP Family Medicine; Visit Provider Internal Medicine
DX: Z12.11 Encounter for screening for malignant neoplasm of colon (principal); D12.5 Benign neoplasm of sigmoid colon; K57.30 Diverticulosis of large intestine without perforation or abscess without bleeding; R10.13 Epigastric pain
CPT/HCPCS: 00811; 00813; 43239; 45380; 88305; J2704

== ENCOUNTER 2023-10-26 12:03 | Outpatient (CLI) | payer BC, SELFPAY ==
--- NOTE | 2023-10-26 12:30 | PE_ITS ---
[facility] [address] [facility] [address] Phone:?[phone] Fax:?[phone] Referring Physician Information: Brendan Baltazar [address] [facility] [place] [address] Phone:?[phone] Fax:?[phone] Patient:?Travis Lea D.O.B:?1975 Sex:?Male Phone:?[phone] [facility] MRN:?[id number] Exam Date:?10/26/2023 EXAM:?PET/CT EYES TO THIGHS, CANCER INITIAL STAGING CLINICAL INFORMATION: Lung mass TECHNICAL INFORMATION: Helical acquisition of data was obtained from the orbits to the upper thighs with reconstruction of 3.75 mm thick images at 3.[address] data was used for attenuation correction. PET scanning was performed through the same anatomic range 60 minutes following administration of 14.88 mCi of 18-FDG delivered intravenously. The patient's glucose at the time of the injection was 67 mg/dL. PET, CT and PET/CT fusion images are interpreted using a computer viewing workstation. PET, CT and PET/CT fusion images were archived and saved in the patient's permanent medical record. COMPARISON: CT chest 10/09/2023, CT abdomen/pelvis 06/23/2022 INTERPRETATION: Head and Neck: There are no abnormal hypermetabolic foci within the head or neck. There is physiologic uptake in the intracranial soft tissues. Minimal opacification of the left maxillary sinus. Chest: Background mediastinal blood pool activity with a mean SUV of 1.92. Patchy opacities in the right upper lobe which have overall decreased in extent from the comparison exam. The largest component measures 2.4 x 1.8 cm (series 202 image 105), previously measuring 2.9 x 2.5 cm. Associated FDG avidity with an SUV max of 13.3. A second patchy opacity slightly more posteriorly has also decreased in size and is slightly FDG avid with an SUV max of 4.37. Mildly persistent centrilobular nodules in the right upper lobe. Decreasing patchy opacity in the left upper lobe. A right hilar lymph node measures 1.1 cm in short access, similar to the comparison CT with an SUV max of 3.6. A nonspecific nonenlarged left axillary lymph node with minimal low-level FDG uptake with an SUV max of 4.37, likely reactive. Incidentally noted aberrant right subclavian artery. Abdomen and Pelvis: Background average liver parenchymal uptake with an SUV of 2.35. Sigmoid diverticulosis. Sigmoid wall thickening with an adjacent lesion measuring 1.9 x 1.2 cm (series 202 image 265). The lesion measures fluid density and demonstrates FDG avidity with an SUV max of 25.21. Minimal pericolonic stranding in the region. There is physiologic excretion of radiotracer in the urine and bowel. A small hypoattenuating lesion in the left hepatic lobe is unchanged from the comparison CT and likely reflects a cyst. Skeleton, Musculature, and Integument: No abnormal hypermetabolic foci within the skeleton. No amy osteoblastic or osteolytic disease. CONCLUSION: * FDG avid patchy opacity in the right upper lobe. This has overall decreased in size from the comparison CT chest from 10/09/2023 and is favored to reflect resolving infection. Recommend additional short interval follow-up CT chest in 3-4 weeks to ensure resolution. * Mildly enlarged right hilar lymph node demonstrates mild FDG avidity and may be reactive. Attention on follow-up imaging. * An FDG avid perisigmoid lesion. There are sigmoid diverticula in the region and sigmoid diverticulitis was visualized on the prior exam from 06/23/2022. Its possible this reflects complicated diverticulitis with pericolonic phlegmon/abscess. Correlate with any recent history of diverticulitis and pain in the region. An underlying neoplasm is not excluded and recommend colonoscopy when clinically feasible. Electronically signed on 10/30/2023 10:59:00 AM by Robson Fry D.O
== END 2023-10-26 12:04 | disposition home or self-care (01) ==
LOC: RAD 12:04
PROVIDERS: PCP Physician Assistant Medical; Visit Provider Physician Assistant Medical
DX: R91.1 Solitary pulmonary nodule (principal); D64.9 Anemia, unspecified
CPT/HCPCS: 78815; A9552

== ENCOUNTER 2023-12-29 09:51 | Outpatient (CLI) | payer BC, SELFPAY ==
--- NOTE | 2023-12-29 10:00 | CT_ITS ---
Patient: TAWANA SELF Facility:?[facility] Patient ID:?[id number] Site Patient ID:?[id number] Site :?[id number] Study:?CT-Chest w/o-12/29/2023 10:06:48 AM Ordering Physician:Kylee Metcalf Final Report: Indication: Follow-up probable inflammation in the right upper lobe Technique: Noncontrast CT chest Please note that all CT scans at this facility use dose modulation, iterative reconstruction, and/or weight-based dosing when appropriate to reduce radiation dose to as low as reasonably achievable. Comparison: CT-PET 10/26/2023, CT chest 10/09/2023 Findings: Decreased focal consolidation within the right upper lobe with mild residual wispy densities present. Resolution of the previously noted nodular densities within the posterior aspect of the right upper lobe. No pleural effusion or pneumothorax. No pulmonary edema. The visualized thyroid gland is normal. Subcentimeter right hilar lymph node. Adrenal glands normal. Simple cysts within the liver. Gallbladder normal. Spleen unremarkable. No upper abdominal adenopathy. No fracture. Impression: Near-complete resolution of the inflammatory process within the right upper lobe with mild residual atelectasis/scarring. No adenopathy. Please note that all CT scans at this facility use dose modulation, iterative reconstruction, and/or weight-based dosing when appropriate to reduce radiation dose to as low as reasonably achievable. Dictated by Conor Rodriguez MD @ 12/29/2023 10:53:24 AM Signed by:?Conor Rodriguez MD @12/29/2023 10:53:24 AM (Electronic Signature)
== END 2023-12-29 09:52 | disposition home or self-care (01) ==
LOC: CT 09:52
PROVIDERS: PCP Physician Assistant Medical; Visit Provider Internal Medicine
DX: R91.8 Other nonspecific abnormal finding of lung field (principal)
CPT/HCPCS: 71250